=== PATIENT | female | born 1990 ===

== ENCOUNTER 2024-04-14 15:59 | Emergency (ER) | payer OTHER, SELFPAY ==
--- OUTSIDE RECORDS SUMMARY | 2024-04-14 16:03 | XMS REPORT | Continuity of Care Document ---
Author Name Unknown Address [address] [facility] [address] [place] [address] [facility] Address [address] [place] [address] Care Team Providers Care Computer Publisher Name Role Phone Pcp, Patient Does Not Have A Primary Care Physic fela COURTNEY CHUNG Attending Clinician Unavailab le Lab, Lela Attending Clinician Unavailable Courtney Whitlock Attending Clinician + [phone] GEE NOLASCO Attending Clinician Unavailable Gee Nolasco MD Attending Clinician [phone] Joanie Rodriguez Attending Clinician [phone] Doctor Unassigned, [place] Attending Clinician U Laura Martínez MD Attending Clinician [phone] Maykel Ray MD Attending Clinician + JOANIE WALTON Attending Clinician Unavailabl e Risk, Dml-Zpvgp-Ns/High Attending Clinician Unav ailable HERVE HOYT Attending Clinician Unavail able AkinsiHerve Evans Attending Clinician + Marisa Goss RN Attending Clinician Unavailable Ultrasound, Gustavo-Mfleon Attending Clinician UnavailYazan Henry MD Attending Clinician [phone] YAZAN OCAMPO Attending Clinician Unavailable YAZAN OCAMPO Attending Clinician Unavailable MARTITA TRUJILLO Attending Clinician Unavailkwesi Trujillo WHCNP, Martita Mina Attending Clinician [phone] JOSE SAMUELS Attending Clinician UnavailJose Ford MD Attending Clinician + [phone] BRYANT JUSTICE Attending Clinician Unavailkaylin Justice MD, Bryant Askew Attending Clinician [phone] Velasquez Sparks MD Attending Clinician [phone] VELASQUEZ SPARKS Attending Clinician Unavailable VELASQUEZ SPARKS Attending Clinician Unavailable Ruddy NOEL, Jesse Spicer Attending Clinician JESSE CANDELARIO Attending Clinician Jolynn DELIA Cuevas Attending Clinician Unav ailable [facility], [facility] Unavailable Isaiah MSN, Paola Ewing Attending Clinician [phone] 1, [facility] Attending Clinician Unavailab susie Lobato MD, Delia Attending Clinician + Arnulfo Huffman MD Attending Clinician [phone] Faculty, Gustavo leonie Mfm Attending Clinician Unava ilable [facility], [facility]ending Clinician Unava ilable BrysonGayle Kelly Attending Clinician + [phone] Marcy PACDelilah Attending Clinician [phone] Pcp, Patient Does Not Have A Attending Clinician Darío HERNANDEZ, Teressa Zazueta Attending Clinician [phone] Sarah Felix Attending Clinician [phone] BRYANT JUSTICE Admitting Clinician UnavailGEE Romeo Admitting Clinician Unavailable Gee Nolasco MD Admitting Clinician +[phone] Vinh NOEL, Bryant Askew Admitting Clinician [phone] Payers Payer Name Policy Type Policy Number Effective Date Expirati on Date Source [facility] [id number] 2015 00:00:00 [place] [id number] 2020 00:00:00 MEDICAID PENDING PENDING 2020 00:00:00 Problems Condition Name Condition Details Condition Category Status Onset Date Resolution Date Last Treatment Date Treating Clinician Comments Source History of depression History of depression Disease Active 3-22 00:00: 00 [facility] 39 weeks gestation of 39 weeks gestation of Disease Active 2-05 00:00: 00 [facility] High-risk in third trimester High-risk in third trimester Disease Active 2-03 00:00: 00 [facility] History of COVID-19 History of COVID-19 Disease Active 2-03 00:00: 00 [facility] Abnormal finding in urine Abnormal finding in urine Disease Active 2-03 00:00: 00 [facility] Tubal ligation status Tubal ligation status Disease Active -20 00:00: 00 [facility] COVID-19 affecting in third trimester COVID-19 affecting in third trimester Disease Active 1-17 00:00: 00 [facility] Recurrent urinary tract infection affecting in third trimester Recurrent urinary tract infection affecting in third trimester Disease Active 1-17 00:00: 00 [facility] Pre-existi ng diabetes mellitus during in third trimester Pre-existi ng diabetes mellitus during in third trimester Disease Active 2020-03 00:00: 00 [facility] Recurrent UTI (urinary tract infection) complicati ng , unspecifie d trimester Recurrent UTI (urinary tract infection) complicati ng , unspecifie d trimester Disease Active 2020-0320 00:00: 00 [facility] Anemia of mother in , antepartum Anemia of mother in , antepartum Disease Active 2020-0320 00:00: 00 [facility] High risk , antepartum High risk , antepartum Disease Active 2020-03 00:00: 00 [facility] Pre-existi ng diabetes mellitus affecting in third trimester, antepartum Pre-existi ng diabetes mellitus affecting in third trimester, antepartum Disease Active 2020-03 2-20 00:00: 00 [facility] Anemia of mother in , antepartum Anemia of mother in , antepartum Disease Active 2020-03 2-20 00:00: 00 [facility] Pre-existi ng diabetes mellitus affecting in second trimester, antepartum Pre-existi ng diabetes mellitus affecting in second trimester, antepartum Disease Active 8-25 00:00: 00 [facility] History of gestationa l hypertensi on History of gestationa l hypertensi on Disease Active 8-25 00:00: 00 [facility] UTI in UTI in Disease Active 7- 00:00: 00 Overview: Formattin g of this note might be different from the original. 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 Failed 3hr gtt [facility] Supervisio n of high-risk Supervisio n of high-risk Disease Active 6 00:00: 00 [facility] Depression affecting Depression affecting Disease Active 6-10 00:00: 00 [facility] Multiparit y Multiparit y Disease Active 610 00:00: 00 [facility] Depo-Prove ra contracept annelise status Depo-Prove ra contracept annelise status Disease Active 3-13 00:00: 00 [facility] Maternal tobacco use in third trimester Maternal tobacco use in third trimester Disease Active 05-03 00:00: 00 Overview: Formattin g of this note might be different from the original. 5/6cig/da y [facility] Well woman exam Well woman exam Disease Active 2-19 00:00: 00 [facility] Allergies, Adverse Reactions, Alerts Allergy Name Allergy Type Status Severity Reaction(s) Onset Date Inactive Date Treating Clinician Comments Source Yris eklly Propensi ty to adverse reaction s Active Hives 10-05 00:00: 00 [facility] CLINDENISE ZUNILDA DRUG INGREDI Active Hives 10-05 00:00: 00 [facility] Social History Social Habit Start Date Stop Date Quantity Comments Source History of tobacco use 2011-05-14 00:00:00 Cigarette Smoker [facility] History SDOH Alcohol Frequency [facility] History SDOH Alcohol Std Drinks [facility] History SDOH Alcohol Binge [facility] Sexual orientation [facility] Exposure to SARS-CoV-2 (event) 2021-05-07 00:00:00 2021-06-06 07:59:00 Not sure [facility] History of Social function 2021-06-03 00:00:00 2021-06-03 00:00:00 [facility] Alcohol intake 2021-04-20 00:00:00 2021-04-20 00:00:00 Ex-drinker (finding) [facility] Cigarettes smoked current (pack per day) - Reported 2020-08-22 00:00:00 2020-08-22 00:00:00 [facility] Tobacco use and exposure 2020-08-22 00:00:00 2020-08-22 00:00:00 Smokeless tobacco non-user [facility] Alcohol Comment 2017-09-02 00:00:00 2017-09-02 00:00:00 socially [facility] Tobacco Comment 2016-07-30 00:00:00 2016-07-30 00:00:00 5-6 cigarrete per day [facility] Sex Assigned At 1990 00:00:00 1990 00:00:00 [facility] Smoking Status Start Date Stop Date Source Smokes tobacco daily 2020-08-22 00:00:00 [facility] Medications Ordered Medication Name Filled Medication Name Start Date Stop Date Current Medication? Ordering Clinician Indication Dosage Frequency Signature (SIG) Comments Components Source SERTraline (ZOLOFT) 50 mg tablet 04-21 11:32: 29 Yes 50mg Take 50 mg by mouth daily. [facility] busPIRone 5 mg tablet 04-21 11:32: 29 Yes 5mg Take 5 mg by mouth 2 (two) times daily. [facility] ascorbic acid, vitamin C, 500 mg tablet 2 00:00: 00 06-03 00:00 :00 No [id number] 500mg Take 1 tablet by mouth 3 (three) times daily. [facility] foLIC acid 1 mg tablet 04-21 00:00: 00 06-03 00:00 :00 No [id number] 1mg Take 1 tablet by mouth daily. [facility] ferrous sulfate 325 mg (65 mg iron) tablet 04-21 00:00: 00 06-03 00:00 :00 No [id number] 325mg Take 1 tablet by mouth 3 (three) times daily with meals. [facility] vitamin w/FA tablet 04-21 00:00: 00 06-03 00:00 :00 No [id number] 1{tbl} Take 1 tablet by mouth daily. [facility] docusate calcium 240 mg capsule 04-21 00:00: 00 06-03 00:00 :00 No [id number] 240mg Take 1 capsule by mouth once daily as needed for Constipati on. [facility] ibuprofen 600 mg tablet 04-21 00:00: 00 06-03 00:00 :00 No [id number] 600mg Take 1 tablet by mouth every 6 (six) hours as needed (Pain). Take with food or milk. [facility] blood sugar diagnostic (TRUE METRIX GLUCOSE TEST STRIP) strip 08-29 00:00: 00 06-03 00:00 :00 No [id number] Check blood glucose 4x dialy [facility] Blood-Gluco se Meter (TRUE METRIX AIR GLUCOSE METER) Kit 08-29 00:00: 00 06-03 00:00 :00 No [id number] Check glucose 4x daily [facility] lancets 28 gauge Misc 08-29 00:00: 00 06-03 00:00 :00 No [id number] Check blood glucose 4x daily [facility] Immunizations Ordered Immunization Name Filled Immunization Name Date Status Comments Source TDAP 2021-02-13 00:00:00 Completed [facility] TDAP 2021-02-13 00:00:00 Completed [facility] HPV9 2017-09-02 00:00:00 Completed [facility] HPV9 2017-09-02 00:00:00 Completed [facility] HPV 2015-07-08 00:00:00 Completed [facility] HPV 2015-07-08 00:00:00 Completed [facility] HPV 2015-05-01 00:00:00 Completed [facility] HPV 2015-05-01 00:00:00 Completed [facility] TDAP 2015-01-17 00:00:00 Completed [facility] TDAP 2015-01-17 00:00:00 Completed [facility] TDAP Unknown Completed [facility] HPV Unknown Completed [facility] HPV9 Unknown Completed [facility] Vital Signs Vital Name Observation Time Observation Value Comments S ource Systolic blood pressure 2021-06-03 14:46:00 117 mm[Hg] [facility] Diastolic blood pressure 2021-06-03 14:46:00 80 mm[Hg] [facility] Heart rate 2021-06-03 14:46:00 85 /min [facility] Body temperature 2021-06-03 14:46:00 36.56 Flaca [facility] Respiratory rate 2021-06-03 14:46:00 16 /min [facility] Body height 2021-06-03 14:46:00 154.9 cm [facility] Body weight 2021-06-03 14:46:00 48.988 kg [facility] BMI 2021-06-03 14:46:00 20.41 kg/m2 [facility] Encounters Start Date/Time End Date/Time Encounter Type Admission Type Attending [facility] Care Facility Care Department Encounter ID Source 2021-03-07 01:26:59 Outpatient P IDMB RAI [id number] [facility] 2021-01-13 01:28:31 Emergency [facility] [id number] [facility] 2021-01-10 08:46:25 Emergency [facility] [id number] [facility] 2021-01-09 17:43:35 Emergency [facility] [id number] [facility] 2021-07-21 08:30:00 2021-07-21 08:30:00 Outpatient R [facility] [id number] [facility] 2021-07-21 08:30:00 2021-07-21 08:30:00 Outpatient R COURTNEY CHUNG [facility] [id number] [facility] 2021-06-06 07:45:00 2021-06-06 08:15:37 Manager Employee Benefits Visit Lab, [facility] Courtney Chung [facility] [employer] [facility]NAL & CHILD [facility] 1..840.114 350.1.13.10 4.2.7.2.686 [id number] [facility] 2021-06-06 07:45:00 2021-06-06 07:45:00 Outpatient R [facility] [id number] [facility] 2021-06-06 07:45:00 2021-06-06 07:45:00 Outpatient R COURTNEY CHUNG [facility] [id number] [facility] 2021-06-03 09:30:00 2021-06-03 10:19:36 Outpatient R COURTNEY CHUNG [facility] [id number] [facility] 2021-06-03 09:30:00 2021-06-03 10:19:36 Office Visit Courtney Chung [facility] [employer] [facility] CHILD [facility] ..840.114 350.1.13.10 4.2.7.2.686 [id number] [facility] 2021-06-03 09:30:00 2021-06-03 09:30:00 Outpatient SHANTI CURIELÁNGELKaylin [facility] [id number] [facility] 2021-05-09 09:15:00 2021-05-09 10:25:14 Outpatient SHANTI CURIELKONSTANTIN [facility] [id number] [facility] 2021-05-09 09:15:00 2021-05-09 10:25:14 Routine Visit Shanti Chungkonstantin Ang [facility] [employer] [facility] & CHILD [facility] 1..114 350.1.13.10 4.2.7.2.686 [id number] [facility] 2021-05-09 09:15:00 2021-05-09 10:25:14 Outpatient MARI CURIELOBEDKaylin [facility] [id number] [facility] 2021-04-19 06:42:00 2021-04-21 11:32:00 Inpatient P [facility] GEE [facility] RAI [id number] [facility] 2021-04-19 06:42:00 2021-04-21 11:32:00 Hospital Encounter Mercy Gee F [facility] 1..114 350.1.13.10 4.2.7.2.686 [id number] [facility] 2021-04-21 00:00:00 2021-04-21 00:00:00 Telephone Joanie Walton [facility] [employer] [facility] 1..114 350.1.13.10 4.2.7.2.686 [id number] [facility] 2021-04-21 00:00:00 2021-04-21 00:00:00 Patient Secure Msg Doctor Unassigned, [place] [facility] 1.0.114 350.1.13.10 4.2.7.2.686 [id number] [facility] 2021-04-19 12:00:00 2021-04-20 02:02:00 Anesthesia Event Elier Laura Valiente-Jered laughlin, Maykel [facility] 1.840.114 350.1.13.10 4.2.7.2.686 [id number] [facility] 2021-04-19 06:42:00 2021-04-19 06:42:00 Inpatient P GEE NOLASCO [facility] RAI [id number] [facility] 2021-04-17 12:45:00 2021-04-17 13:29:55 Outpatient R JOANIE WALTON [facility] [id number] [facility] 2021-04-17 12:45:00 2021-04-17 13:29:55 Routine Visit Risk, Ang-Rmchp-N p/High Joanie Walton [facility] [employer] [facility] & CHILD [facility] 1..840.114 350.1.13.10 4.2.7.2.686 [id number] [facility] 2021-04-17 12:30:00 2021-04-17 12:30:00 Outpatient R [facility] [id number] [facility] 2021-04-15 12:45:00 2021-04-15 13:30:15 Outpatient R HERVE HOYT [facility] [id number] [facility] 2021-04-15 12:45:00 2021-04-15 13:30:15 Routine Visit Herve Hoyt [facility] [employer] [facility] & CHILD [facility] 1..840.114 350.1.13.10 4.2.7.2.686 [id number] [facility] 2021-04-15 12:30:00 2021-04-15 12:30:00 Outpatient R [facility] [id number] [facility] 2021-04-15 00:00:00 2021-04-15 00:00:00 Orders Only Doctor Unassigned, [place] [facility] 1.840.114 350.1.13.10 4.2.7.2.686 [id number] [facility] 2021-04-11 00:00:00 2021-04-11 00:00:00 Telephone Herve Hoyt [facility] [employer] [facility] & CHILD [facility] 1.840.114 350.1.13.10 4.2.7.2.686 [id number] [facility] 2021-04-11 00:00:00 2021-04-11 00:00:00 Nurse Triage Marisa Goss [facility] 1.840.114 350.1.13.10 4.2.7.2.686 [id number] [facility] 2021-04-10 12:45:00 2021-04-10 13:40:21 Outpatient R JOANIE WALTON [facility] [id number] [facility] 2021-04-10 12:45:00 2021-04-10 13:40:21 Routine Visit Risk, Ang-Rmchp-N p/High Jonaie Walton [facility] [employer] [facility] & CHILD [facility] 1.840.114 350.1.13.10 4.2.7.2.686 [id number] [facility] 2021-04-10 12:30:00 2021-04-10 12:30:00 Outpatient R [facility] [id number] [facility] 2021-04-08 00:00:00 2021-04-08 00:00:00 Abstract Herve Hoyt [facility] [employer] [facility] 1.0.114 350.1.13.10 4.2.7.2.686 [id number] [facility] 2021-04-07 15:00:00 2021-04-07 15:30:00 Manager Employee Benefits Visit Ultrasound, Yazan Harrison [facility] [employer] [facility] & CHILD [facility] 1.840.114 350.1.13.10 4.2.7.2.686 [id number] [facility] 2021-04-07 15:00:00 2021-04-07 15:01:06 Outpatient P YAZAN OCAMPO SHANNON [facility] [id number] [facility] 2021-04-07 15:00:00 2021-04-07 15:00:00 Outpatient P YAZAN OCAMPO SHANNON [facility] [id number] [facility] 2021-04-07 14:00:00 2021-04-07 14:29:59 Routine Visit Herve Hoyt [facility] & CHILD [facility] 1.840.114 350.1.13.10 4.2.7.2.686 [id number] [facility] 2021-04-07 00:00:00 2021-04-07 00:00:00 Orders Only Doctor Unassigned, [place] [facility] 1.840.114 350.1.13.10 4.2.7.2.686 [id number] [facility] 2021-04-03 13:15:00 2021-04-03 13:20:52 Outpatient R MARTITA TRUJILLO [facility] [id number] [facility] 2021-04-03 13:15:00 2021-04-03 13:20:52 Routine Visit Risk, Ang-Rmchp-N p/High Martita Trujillo [facility] [employer] [facility] & CHILD [facility] 1..840.114 350.1.13.10 4.2.7.2.686 [id number] [facility] 2021-04-01 10:15:00 2021-04-01 10:43:29 Outpatient R HERVE HOYT [facility] [id number] [facility] 2021-04-01 10:15:00 2021-04-01 10:43:29 Routine Visit Herve Hoyt Rodriguez [facility] [employer] [facility] & CHILD [facility] 1.284.114 350.1.13.10 4.2.7.2.686 [id number] [facility] 2021-04-01 00:00:00 2021-04-01 00:00:00 Orders Only Doctor Unassigned, [place] [facility] 1.2.114 350.1.13.10 4.2.7.2.686 [id number] [facility] 2021-03-27 12:45:00 2021-03-27 15:29:27 Outpatient R JOANIE WALTON [facility] [id number] [facility] 2021-03-27 12:45:00 2021-03-27 15:29:27 Routine Visit Risk, Ang-Rmchp-N p/High Joanie Walton [facility] [employer] [facility] & CHILD [facility] 1.840.114 350.1.13.10 4.2.7.2.686 [id number] [facility] 2021-03-25 13:45:00 2021-03-25 15:09:34 Outpatient R COURTNEY CHUNG [facility] [id number] [facility] 2021-03-25 13:45:00 2021-03-25 15:09:34 Routine Visit Courtney Chung [facility] [employer] [facility] & CHILD [facility] 1..114 350.1.13.10 4.2.7.2.686 [id number] [facility] 2021-03-25 00:00:00 2021-03-25 00:00:00 Orders Only Doctor Unassigned, [place] [facility] 1.2.840.114 350.1.13.10 4.2.7.2.686 [id number] [facility] 2021-03-20 15:30:00 2021-03-20 15:30:00 Outpatient R COURTNEY CHUNG [facility] [id number] [facility] 2021-03-20 14:45:00 2021-03-20 14:45:00 Outpatient R [facility] [id number] [facility] 2021-03-20 00:00:00 2021-03-20 00:00:00 Telephone Herve Hoyt [facility] [employer] [facility] & CHILD [facility] .840.114 350.1.13.10 4.2.7.2.686 [id number] [facility] 2021-03-17 08:00:00 2021-03-17 08:55:39 Outpatient R HERVE HOYT [facility] [id number] [facility] 2021-03-17 08:00:00 2021-03-17 08:55:39 Routine Visit Herve Hoyt [facility] [facility] .840.114 350.1.13.10 4.2.7.2.686 [id number] [facility] 2021-03-13 15:30:00 2021-03-13 15:56:15 Outpatient R HERVE HOYT [facility] [id number] [facility] 2021-03-13 15:30:00 2021-03-13 15:56:15 Routine Visit Herve Hoyt [facility] [facility] .840.114 350.1.13.10 4.2.7.2.686 [id number] [facility] 2021-03-13 15:00:00 2021-03-13 15:00:00 Outpatient R [facility] [id number] [facility] 2021-03-13 00:00:00 2021-03-13 00:00:00 Orders Only Doctor Unassigned, [place] [facility] 1..840.114 350.1.13.10 4.2.7.2.686 [id number] [facility] 2021-03-11 00:00:00 2021-03-11 00:00:00 Abstract Herve Hoyt [facility] [employer] [facility] & CHILD [facility] 1..840.114 350.1.13.10 4.2.7.2.686 [id number] [facility] 2021-03-10 16:00:00 2021-03-10 16:19:00 Routine Visit Herve Hoyt [facility] [employer] [facility] & CHILD [facility] 1..840.114 350.1.13.10 4.2.7.2.686 [id number] [facility] 2021-03-10 15:00:00 2021-03-10 15:37:51 Outpatient JOSE LAW [facility] [id number] [facility] 2021-03-10 15:30:00 2021-03-10 15:30:00 Outpatient YAZAN PAIGE SHANNON [facility] [id number] [facility] 2021-03-10 15:00:00 2021-03-10 15:30:00 Manager Employee Benefits Visit Ultrasound, Yazan Harrison Hassan M [facility] [employer] [facility] & CHILD [facility] 1..840.114 350.1.13.10 4.2.7.2.686 [id number] [facility] 2021-03-06 19:09:00 2021-03-07 01:26:00 Outpatient P [facility] [id number] [facility] 2021-03-06 19:09:00 2021-03-07 01:26:00 Hospital Encounter Bryant Justice [facility] 1.840.114 350.1.13.10 4.2.7.2.686 [id number] [facility] 2021-03-06 16:00:00 2021-03-06 16:18:32 Outpatient R HERVE HOYT [facility] [id number] [facility] 2021-03-06 16:00:00 2021-03-06 16:18:32 Routine Visit Herve Hoyt [facility] [employer] [facility] & CHILD [facility] 1..840.114 350.1.13.10 4.2.7.2.686 [id number] [facility] 2021-03-06 15:30:00 2021-03-06 15:30:00 Outpatient R [facility] [id number] [facility] 2021-03-06 00:00:00 2021-03-06 00:00:00 Orders Only Doctor Unassigned, [place] [facility] 1.2840.114 350.1.13.10 4.2.7.2.686 [id number] [facility] 2021-03-03 15:30:00 2021-03-03 15:45:00 Routine Visit Herve Hoyt [facility] [employer] [facility] 1..840.114 350.1.13.10 4.2.7.2.686 [id number] [facility] 2021-03-03 15:30:00 2021-03-03 15:30:00 Outpatient R HERVE HOYT [facility] [id number] [facility] 2021-03-03 00:00:00 2021-03-03 00:00:00 Orders Only Doctor Unassigned, [place] [facility] 1.114 350.1.13.10 4.2.7.2.686 [id number] [facility] 2021-02-27 14:30:00 2021-02-27 15:59:36 Outpatient R JOANIE WALTON [facility] [id number] [facility] 2021-02-27 14:30:00 2021-02-27 15:59:36 Routine Visit Risk, YoandyRmchp-N p/[facility] [employer] [facility] 1..114 350.1.13.10 4.2.7.2.686 [id number] [facility] 2021-02-24 00:00:00 2021-02-24 00:00:00 Salvador Walton [facility] [employer] [facility] 1.114 350.1.13.10 4.2.7.2.686 [id number] [facility] 2021-02-13 14:30:00 2021-02-13 15:43:59 Outpatient R JOANIE WALTON [facility] [id number] [facility] 2021-02-13 14:30:00 2021-02-13 15:43:59 Routine Visit Risk, YoandyRmchp-N p/High Nadine [facility] [employer] [facility] 1..114 350.1.13.10 4.2.7.2.686 [id number] [facility] 2021-02-10 15:16:09 2021-02-10 15:46:09 Manager Employee Benefits Visit Ultrasound, Yazan Harrison, Velasquez [facility] [employer] [facility] 1..114 350.1.13.10 4.2.7.2.686 [id number] [facility] 2021-02-10 15:00:00 2021-02-10 15:00:00 Outpatient P VELASQUEZ SPARKS SANGEETA [facility] [id number] [facility] 2021-01-23 14:30:00 2021-01-23 15:42:33 Outpatient JOANIE DANIELLE [facility] [id number] [facility] 2021-01-23 14:17:10 2021-01-23 15:42:33 Routine Visit Risk, Ang-Rmchp-N p/High Joanie Walton [facility] [employer] [facility] 1.2.840.114 350.1.13.10 4.2.7.2.686 [id number] [facility] 2021-01-13 13:02:24 2021-01-13 13:32:24 Manager Employee Benefits Visit Ultrasound, Yazan Harrison [facility] [employer] [facility] 1..840.114 350.1.13.10 4.2.7.2.686 [id number] [facility] 2021-01-13 13:00:00 2021-01-13 13:00:00 Outpatient YAZAN JIMÉNEZ SHANNON [facility] [id number] [facility] 2021-01-13 13:00:00 2021-01-13 13:00:00 Outpatient R [facility] [id number] [facility] 2021-01-02 14:30:00 2021-01-02 15:26:09 Outpatient JOANIE DANIELLE [facility] [id number] [facility] 2021-01-02 14:17:18 2021-01-02 15:26:09 Routine Visit Risk, Ang-Rmchp-N p/High Joanie Walton [facility] [employer] [facility] 1.2.840.114 350.1.13.10 4.2.7.2.686 [id number] [facility] 2021-01-02 00:00:00 2021-01-02 00:00:00 Orders Only Doctor Unassigned, [place] [facility] 1.2.840.114 350.1.13.10 4.2.7.2.686 [id number] [facility] 2020-12-13 00:00:00 2020-12-13 00:00:00 Telephone Joanie Walton Denton [facility] [employer] [facility] 1.2.840.114 350.1.13.10 4.2.7.2.686 [id number] [facility] 2020-12-12 00:00:00 2020-12-12 00:00:00 Telephone Jimy DelgadoN p/ [facility] [employer] [facility] 1.2.840.114 350.1.13.10 4.2.7.2.686 [id number] [facility] 2020-12-11 00:00:00 2020-12-11 00:00:00 Telephone Joanie Walton [place] [facility] [employer] [facility] 1.2.840.114 350.1.13.10 4.2.7.2.686 [id number] [facility] 2020-12-09 10:29:12 2020-12-09 11:44:12 Manager Employee Benefits Visit Ultrasound, Bryant Jacinto [facility] [employer] [facility] 1.2.840.114 350.1.13.10 4.2.7.2.686 [id number] [facility] 2020-12-09 10:45:00 2020-12-09 10:45:00 Outpatient P [facility] [id number] [facility] 2020-12-09 00:00:00 2020-12-09 00:00:00 Abstract Herve Hoyt Rodriguez [facility] [employer] [facility] 1.2.840.114 350.1.13.10 4.2.7.2.686 [id number] [facility] 2020-12-05 13:45:26 2020-12-05 14:56:51 Routine Visit Risk, Ang-Rmchp-N p/High Joanie Walton [facility] [employer] [facility] 1..840.114 350.1.13.10 4.2.7.2.686 [id number] [facility] 2020-12-05 14:00:00 2020-12-05 14:00:00 Outpatient R [facility] [id number] [facility] 2020-11-21 14:40:58 2020-11-21 15:33:06 Routine Visit Risk, Ang-Rmchp-N p/High Joanie Walton [facility] [employer] [facility] 1..840.114 350.1.13.10 4.2.7.2.686 [id number] [facility] 2020-11-21 15:00:00 2020-11-21 15:00:00 Outpatient R [facility] [id number] [facility] 2020-11-06 14:17:00 2020-11-06 15:33:18 Routine Visit Risk, Ang-Rmchp-N p/High Joanie Walton [facility] [employer] [facility] 1..840.114 350.1.13.10 4.2.7.2.686 [id number] [facility] 2020-11-06 14:30:00 2020-11-06 14:30:00 Outpatient R [facility] [id number] [facility] 2020-11-06 00:00:00 2020-11-06 00:00:00 Orders Only Doctor Unassigned, [place] [facility] 1..114 350.1.13.10 4.2.7.2.686 [id number] [facility] 2020-11-04 09:05:59 2020-11-04 10:18:27 Office [facility] 1..114 350.1.13.10 4.2.7.2.686 [id number] [facility] 2020-11-04 09:30:00 2020-11-04 09:30:00 Outpatient R JESSE CANDELARIO [facility] [id number] [facility] 2020-10-28 09:00:00 2020-10-28 09:00:00 Outpatient R DELIA SMITH [facility] [id number] [facility] 2020-10-28 00:00:00 2020-10-28 00:00:00 Telephone Herve Hoyt [facility] [employer] [facility] 1..840.114 350.1.13.10 4.2.7.2.686 [id number] [facility] 2020-10-22 14:43:49 2020-10-22 15:33:11 Routine Visit Herve Hoyt [facility] [employer] [facility] 1.84.114 350.1.13.10 4.2.7.2.686 [id number] [facility] 2020-10-22 15:00:00 2020-10-22 15:00:00 Outpatient R HERVE HOYT [facility] [id number] [facility] 2020-10-22 15:00:00 2020-10-22 15:00:00 Outpatient R HERVE HOYT [facility] [id number] [facility] 2020-10-16 00:00:00 2020-10-16 00:00:00 Abstract Herve Hoyt [facility] [employer] [facility] 1.2.840.114 350.1.13.10 4.2.7.2.686 [id number] [facility] 2020-10-14 10:02:04 2020-10-14 10:59:14 Manager Employee Benefits Visit Lab[facility] Paola Colon [facility] [employer] [facility]ILD [facility] 1.2.840.114 350.1.13.10 4.2.7.2.686 [id number] [facility] 2020-10-14 10:01:46 2020-10-14 10:46:46 Manager Employee Benefits Visit 1[facility] Delia Smith George R [facility] [employer] [facility] 1..840.114 350.1.13.10 4.2.7.2.686 [id number] [facility] 2020-10-14 10:00:00 2020-10-14 10:00:00 Outpatient P DELIA SMTIH [facility] [id number] [facility] 2020-10-10 00:00:00 2020-10-10 00:00:00 Telephone Herve Hoyt [facility] [employer] [facility] 1..840.114 350.1.13.10 4.2.7.2.686 [id number] [facility] 2020-10-07 15:15:00 2020-10-07 15:15:00 Outpatient R HERVE HOYT [facility] [id number] [facility] 2020-10-07 14:40:32 2020-10-07 15:07:21 Routine Visit Herve Hoyt [facility] [employer] [facility] 1.2.840.114 350.1.13.10 4.2.7.2.686 [id number] [facility] 2020-10-07 11:00:00 2020-10-07 11:00:00 Outpatient P [facility] [id number] [facility] 2020-10-07 00:00:00 2020-10-07 00:00:00 Orders Only Doctor Unassigned, [place] [facility] 1.2.114 350.1.13.10 4.2.7.2.686 [id number] [facility] 2020-09-27 00:00:00 2020-09-27 00:00:00 Telephone Herve Hoyt [facility] [employer] [facility] 1.2840.114 350.1.13.10 4.2.7.2.686 [id number] [facility] 2020-09-23 14:45:30 2020-09-23 15:34:41 Routine Visit Herve Hoyt [facility] [employer] [facility] 1.2840.114 350.1.13.10 4.2.7.2.686 [id number] [facility] 2020-09-23 15:00:00 2020-09-23 15:00:00 Outpatient R HERVE HOYT [facility] [id number] [facility] 2020-09-23 00:00:00 2020-09-23 00:00:00 Orders Only Doctor Unassigned, [place] [facility] 1.2840.114 350.1.13.10 4.2.7.2.686 [id number] [facility] 2020-09-17 00:00:00 2020-09-17 00:00:00 Abstract Herve Hoyt Rodriguez [facility] [employer] [facility] 1..840.114 350.1.13.10 4.2.7.2.686 [id number] [facility] 2020-09-16 15:06:26 2020-09-16 15:36:26 Manager Employee Benefits Visit Ultrasound, Arnulfo Leon [facility] [employer] [facility] 1.840.114 350.1.13.10 4.2.7.2.686 [id number] [facility] 2020-09-16 15:15:00 2020-09-16 15:15:00 Outpatient P [facility] [id number] [facility] 2020-09-12 09:00:00 2020-09-12 09:00:00 Outpatient R [facility] [id number] [facility] 2020-09-09 09:04:51 2020-09-09 10:20:12 Routine Visit Faculty, Velasquez Salguero [facility] [employer] [facility] 1..840.114 350.1.13.10 4.2.7.2.686 [id number] [facility] 2020-09-09 09:30:00 2020-09-09 09:30:00 Outpatient R VELASQUEZ SPARKS SANGEETA [facility] [id number] [facility] 2020-09-09 00:00:00 2020-09-09 00:00:00 Orders Only Doctor Unassigned, [place] [facility] 1.840.114 350.1.13.10 4.2.7.2.686 [id number] [facility] 2020-09-02 09:40:36 2020-09-02 10:23:15 Nurse Visit Visit, Gerardochp Nurse Bryant Justice [facility] [employer] [facility] 1.2840.114 350.1.13.10 4.2.7.2.686 [id number] [facility] 2020-09-02 10:00:00 2020-09-02 10:00:00 Outpatient BRYANT NAIR [facility] [id number] [facility] 2020-08-29 00:00:00 2020-08-29 00:00:00 Telephone Herve Hoyt [facility] [employer] [facility] 1.2840.114 350.1.13.10 4.2.7.2.686 [id number] [facility] 2020-08-29 00:00:00 2020-08-29 00:00:00 Telephone Herve Hoyt [facility] [employer] [facility] CHILD [facility] 1.2840.114 350.1.13.10 4.2.7.2.686 [id number] [facility] 2020-08-29 00:00:00 2020-08-29 00:00:00 Velasquez Daley [facility] [employer] [facility] 1.2840.114 350.1.13.10 4.2.7.2.686 [id number] [facility] 2020-08-28 07:51:41 2020-08-28 08:14:09 Manager Employee Benefits Visit Lab, Gustavo-RmchHerve Barger [facility] [employer] [facility] 1.2840.114 350.1.13.10 4.2.7.2.686 [id number] [facility] 2020-08-28 08:00:00 2020-08-28 08:00:00 Outpatient HERVE GOLDENMB [facility] [id number] [facility] 2020-08-27 19:20:00 2020-08-27 21:22:00 Emergency Gayle Bryson [facility] 1.2.840.114 350.1.13.10 4.2.7.2.686 [id number] [facility] 2020-08-26 00:00:00 2020-08-26 00:00:00 Telephone Yoandy DelgadoRmchp-N p/High [facility] [employer] [facility] 1.2.840.114 350.1.13.10 4.2.7.2.686 [id number] [facility] 2020-08-26 00:00:00 2020-08-26 00:00:00 Telephone Herve Hoyt [facility] [employer] [facility] 1.2.840.114 350.1.13.10 4.2.7.2.686 [id number] [facility] 2020-08-23 00:00:00 2020-08-23 00:00:00 Telephone Herve Hoyt [facility] [employer] [facility] 1.2.840.114 350.1.13.10 4.2.7.2.686 [id number] [facility] 2020-08-22 08:31:27 2020-08-22 09:46:24 Initial Visit Herve Hoyt [facility] [employer] [facility] 1.2.840.114 350.1.13.10 4.2.7.2.686 [id number] [facility] 2020-08-22 08:00:00 2020-08-22 08:00:00 Outpatient R HERVE HOYT [facility] [id number] [facility] 2020-08-22 00:00:00 2020-08-22 00:00:00 Orders Only Doctor Unassigned, [place] [facility] 1.2.840.114 350.1.13.10 4.2.7.2.686 [id number] [facility] 2019-10-06 17:58:02 2019-10-06 19:25:00 Emergency Marcy Delilah Mike [facility] 1.2.840.114 350.1.13.10 4.2.7.2.686 [id number] [facility] 2019-07-12 00:00:00 2019-07-12 00:00:00 Telephone Pcp, Patient Does Not Have A [facility] [employer] [facility] 1.2.840.114 350.1.13.10 4.2.7.2.686 [id number] [facility] 2019-06-23 17:24:17 2019-06-23 18:48:00 Emergency Teressa Chanel [facility] 1.2.840.114 350.1.13.10 4.2.7.2.686 [id number] [facility] 2019-05-02 18:05:32 2019-05-02 18:34:00 Emergency Sarah Palacio [facility] 1.2.840.114 350.1.13.10 4.2.7.2.686 [id number] [facility]
--- NOTE | 2024-04-14 16:51 | EDPHYS ---
Physician Documentation [facility] Name: Ellen Cowan Age: 33 yrs Sex: Female : 1990 Arrival Date: 04/14/2024 Time: 15:59 Bed DX2 Private MD: ED Physician Kristan Barrett HPI: 04/14 16:46 This 33 yrs old Unknown Female presents to ER via EMS with complaints of Depression. sp3 16:46 33-year-old female with history of depression currently on BuSpar and Zoloft, who has sp3 been out of her meds, presents to the ED via EMS for depression symptoms. She states she just wants to get back on her medications. She denies suicidal ideation, homicidal ideation, psychosis or any somatic symptoms including headache, chest pain, back pain, abdominal pain, vomiting, diarrhea, , drug use, or any other signs or symptoms on ROS at this time. She did endorse alcohol use including some today.. Historical: - Allergies: 16:18 No Known Allergies; hb - PMHx: 16:18 depressive disorder; hb - PSHx: 16:18 Cholecystectomy; hb - Immunization history:: Adult Immunizations up to date. - Infectious Disease History:: Denies. - Social history:: Smoking status: Patient denies any tobacco usage or history of. ROS: 16:47 Constitutional: Negative for fever, chills, and weight loss, Eyes: Negative for injury, sp3 pain, redness, and discharge, ENT: Negative for injury, pain, and discharge, Neck: Negative for injury, pain, and swelling, Cardiovascular: Negative for chest pain, palpitations, and edema, Respiratory: Negative for shortness of breath, cough, wheezing, and pleuritic chest pain, Abdomen/GI: Negative for abdominal pain, nausea, vomiting, diarrhea, and constipation, Back: Negative for injury and pain, MS/Extremity: Negative for injury and deformity, Skin: Negative for injury, rash, and discoloration, Neuro: Negative for headache, weakness, numbness, tingling, and seizure, Allergy/Immunology: Negative for hives, rash, and allergies, Endocrine: Negative for neck swelling, polydipsia, polyuria, polyphagia, and marked weight changes, Hematologic/Lymphatic: Negative for swollen nodes, abnormal bleeding, and unusual bruising, 16:47 All other systems are negative, Exam: 16:47 Constitutional: This is a well developed, well nourished patient who is awake, alert, sp3 and in no acute distress. Head/Face: Normocephalic, atraumatic. Eyes: Pupils equal round and reactive to light, extra-ocular motions intact. Lids and lashes normal. Conjunctiva and sclera are non-icteric and not injected. Cornea within normal limits. Periorbital areas with no swelling, redness, or edema. Neck: Trachea midline, no thyromegaly or masses palpated, and no cervical lymphadenopathy. Supple, full range of motion without nuchal rigidity, or vertebral point tenderness. No Meningismus. Chest/axilla: Normal chest wall appearance and motion. Nontender with no deformity. No lesions are appreciated. Cardiovascular: Regular rate and rhythm with a normal S1 and S2. No gallops, murmurs, or rubs. Normal PMI, no JVD. No pulse deficits. Respiratory: Lungs have equal breath sounds bilaterally, clear to auscultation and percussion. No rales, rhonchi or wheezes noted. No increased work of breathing, no retractions or nasal flaring. Abdomen/GI: Soft, non-tender, with normal bowel sounds. No distension or tympany. No guarding or rebound. No evidence of tenderness throughout. Back: No spinal tenderness. No costovertebral tenderness. Full range of motion. Skin: Warm, dry with normal turgor. Normal color with no rashes, no lesions, and no evidence of cellulitis. MS/ Extremity: Pulses equal, no cyanosis. Neurovascular intact. Full, normal range of motion. 16:47 Neuro: Normal neurological exam with no deficits. Patient is intoxicated mildly., 16:47 Psych: Patient is depressive with no SI, HI or psychosis. When asked about reasons to live, she states her children and her desire to see them grow up. She has never had suicidal ideation in the past. Some of her stress stems from the father of one of her children. She states she is working through it. She does not fear for her life, is not being sexually or physically abused, and she states the same for her children. She does have a safe place to live.. Vital Signs: 16:17 BP 117 / 68; Pulse 88; Resp 16; Temp 98.5(O); Pulse Ox 100% on R/A; Weight 45.36 kg; hb Height 4 ft. 11 in. ; Pain 0/10; 16:17 Body Mass Index 20.20 (45.36 kg, 149.86 cm) hb 16:17 Pain Scale: Adult hb MDM: 16:13 Medical Screening Exam initiated sp3 16:49 Data reviewed: vital signs, nurses notes. ED course: 33-year-old female with depression sp3 versus depression plus potential bipolar symptoms versus alcohol induced depression. Regardless patient is out of her medications and we will refill them. Patient does not meet criteria for inpatient hospitalization. I do not believe there is a somatic component to this. Patient reassures us that she will return here for any worsening symptoms or concerns. She does have a ride home with a friend in the lobby and she will not be operating any heavy machinery or driving at this time.. Administered Medications: No medications were administered Disposition Summary: 04/14/24 16:50 Discharge Ordered Notes: Location: Home sp3 Condition: Stable sp3 Diagnosis - Depression sp3 Followup: sp3 - With: Private Physician - When: Upon discharge from the Emergency Department - Reason: Continuance of care Discharge Instructions: - Discharge Summary Sheet sp3 - Managing Depression, Adult sp3 Forms: - Medication Reconciliation Form sp3 - Antibiotic Education sp3 - Prescription Opioid Use sp3 - Patient Portal Instructions sp3 - Leadership Thank You Letter sp3 Prescriptions: - buspirone 15 mg Oral tablet - take 1 tablet ORAL route 2 times per day; 60 tablet; Refills: 0, Product sp3 Selection Permitted - Zoloft 50 mg Oral Tablet - take 1 tablet ORAL route once daily; 30 tablet; Refills: 0, Product Selection sp3 Permitted Signatures: Ilene Gant, RN RN Kristan Barrett MD MD sp3
--- NOTE | 2024-04-14 16:51 | ER ---
Nurse's Notes [facility] Name: Ellen Cowan Age: 33 yrs Sex: Female : 1990 Arrival Date: 04/14/2024 Time: 15:59 Bed DX2 Private MD: Diagnosis: Depression Presentation: 04/14 16:17 Chief complaint: EMS states: Depressed, feels sad and does not have anyone to help. hb Denies SI/HI. Coronavirus screen: At this time, the client does not indicate any symptoms associated with coronavirus-19. Ebola Screen: No symptoms or risks identified at this time. Initial Sepsis Screen: Does the patient meet any 2 criteria? No. Patient's initial sepsis screen is negative. Does the patient have a suspected source of infection? No. Patient's initial sepsis screen is negative. Risk Assessment: Do you want to hurt yourself or someone else? Patient reports no desire to harm self or others. Onset of symptoms was April 14, 2024. 16:17 Method Of Arrival: EMS: [facility] hb 16:17 Acuity: RUDY 3 hb Historical: - Allergies: 16:18 No Known Allergies; hb - PMHx: 16:18 depressive disorder; hb - PSHx: 16:18 Cholecystectomy; hb - Immunization history:: Adult Immunizations up to date. - Infectious Disease History:: Denies. - Social history:: Smoking status: Patient denies any tobacco usage or history of. Screenin:45 [facility] ED Fall Risk Assessment (Adult) History of falling in the last 3 months, hb including since admission No falls in past 3 months (0 pts) Confusion or Disorientation No (0 pts) Intoxicated or Sedated No (0 pts) Impaired Gait No (0 pts) Mobility Assist Device Used No (0 pt) Altered Elimination No (0 pt) Score/Fall Risk Level 0 - 2 = Low Risk Oriented to surroundings, Maintained a safe environment, Educated pt \T\ family on fall prevention, incl call for assistance when getting out of bed. 16:45 Abuse screen: Denies threats or abuse. Denies injuries from another. Nutritional hb screening: No deficits noted. Tuberculosis screening: No symptoms or risk factors identified. Assessment: 16:20 General: Appears in no apparent distress. Behavior is calm, cooperative. Pain: Denies hb pain. Neuro: Level of Consciousness is awake, alert, obeys commands, Oriented to person, place, time, situation. Cardiovascular: Patient's skin is warm and dry. Respiratory: Respiratory effort is even, unlabored. GI: No signs and/or symptoms were reported involving the gastrointestinal system. : No signs and/or symptoms were reported regarding the genitourinary system. EENT: No signs and/or symptoms were reported regarding the EENT system. Derm: Skin is pink, warm \T\ dry. Musculoskeletal: No signs and/or symptoms reported regarding the musculoskeletal system. Vital Signs: 16:17 BP 117 / 68; Pulse 88; Resp 16; Temp 98.5(O); Pulse Ox 100% on R/A; Weight 45.36 kg; hb Height 4 ft. 11 in. ; Pain 0/10; 16:17 Body Mass Index 20.20 (45.36 kg, 149.86 cm) hb 16:17 Pain Scale: Adult hb ED Course: 16:11 Patient arrived in ED. harpal 16:11 Kristan Barrett MD is Attending Physician. sp3 16:18 Triage completed. hb 16:18 Arm band placed on. hb 17:12 Patient has correct armband on for positive identification. Provided Education on: hb medications, follow up. 17:12 No provider procedures requiring assistance completed. Patient did not have IV access hb during this emergency room visit. 17:18 Ilene Gant, RN is Primary Nurse. hb Administered Medications: No medications were administered Medication: 17:00 VIS not applicable for this client. hb Outcome: 16:50 Discharge ordered by . sp3 17:12 Discharged to home ambulatory, hb 17:12 Condition: stable 17:12 Discharge instructions given to patient, Instructed on discharge instructions, follow up and referral plans. medication usage, Demonstrated understanding of instructions, follow-up care, medications, Prescriptions given X 2, 17:18 Patient left the ED. hb Signatures: Ilene Gant RN RN hb Botello, Elizabeth eb Patel, Setul, MD MD sp3
[2024-04-14 18:06] VITALS: BP 117/68; TEMP 98.5; O2SAT 100
== END 2024-04-14 17:18 | disposition home or self-care (01) ==
LOC: ER 15:59
DX: F32.A Depression, unspecified (principal)
CPT/HCPCS: 99283

== ENCOUNTER 2024-12-16 17:34 | Emergency (ER) | payer SELFPAY ==
--- OUTSIDE RECORDS SUMMARY | 2024-12-16 17:39 | XMS REPORT | Continuity of Care Document ---
Author Name Unknown Address [address] [facility] [address] [place] [address] [facility] Address [address] [facility] [address] [place] [address] Care Team Providers Care Machine Tech Name Role Phone Nya Katz CNM Primary Care Physician Doctor Unassigned, Edna Attending Clinician U Karon Celaya MA Attending Clinician U COURTNEY Diop Attending Clinician Unavailab le Lela Tirado Attending Clinician Unavailable Courtney Whitlock Attending Clinician + [phone] GEE NOLASCO Attending Clinician Unavailable Gee Nolasco MD Attending Clinician [phone] Joanie Rodriguez Attending Clinician [phone] Doctor Unassigned, Edna Attending Clinician U Laura Martínez MD Attending Clinician [phone] Cory NOEL, Maykel Attending Clinician + JOANIE WALTON Attending Clinician Unavailabl e Risk, Tpy-Oyoaz-Gz/High Attending Clinician Unav ailable HERVE HOYT Attending Clinician Unavail able Herve Hidalgo Attending Clinician + Marisa Goss RN Attending Clinician Unavailable Ultrasound, YoandyMfm Attending Clinician UnavailYazan Henry MD Attending Clinician + [phone] YAZAN OCAMPO Attending Clinician Unavailable YAZAN OCAMPO Attending Clinician Unavailable MARTITA TRUJILLO Attending Clinician Unavailkwesi Tru[facility]illo [facility] Mina Attending Clinician +[phone] JOSE SAMUELS Attending Clinician UnavailJose Ford MD Attending Clinician + [phone] BRYANT JUSTICE Attending Clinician Unavailangélica Justice MD, Bryant Askew Attending Clinician + Velasquez Sparks MD Attending Clinician +[phone] VELASQUEZ SPARKS Attending Clinician Unavailable VELASQUEZ SPARKS Attending Clinician Unavailable Ruddy NOEL, Jesse Spicer Attending Clinician JESSE CANDELARIO Attending Clinician Jolynn vailable DELIA MARTIN Attending Clinician Unav ailable Lab, [facility] Attending Clinician Unavailable Isaiah MSN, Paola Ewing Attending Clinician [phone], [facility] Room Attending Clinician Unavailab susie Lobato MD, Delia Attending Clinician + Arnulfo Huffman MD Attending Clinician + [phone] Faculty, [facility] Attending Clinician Unava ilable Visit, [facility] Nurse Attending Clinician Unava ilable Gayle Hill Attending Clinician [phone] Marcy PACDelilah Attending Clinician + [phone] Pcp, Patient Does Not Have A Attending Clinician Darío HERNANDEZ, Teressa Zazueta Attending Clinician + [phone] Hakeem PACSarah Attending Clinician [phone] BRYANT JUSTICE Admitting Clinician UnavailGEE Romeo Admitting Clinician Unavailable Gee Nolasco MD Admitting Clinician +[phone] Bryant Justice MD Admitting Clinician [phone] Payers Payer Name Policy Type Policy Number Effective Date Expirati on Date Source [facility] [id number] 2015 00:00:00 [place] [id number] 2020 00:00:00 MEDICAID PENDING PENDING 2020 00:00:00 Problems Condition Name Condition Details Condition Category Status Onset Date Resolution Date Last Treatment Date Treating Clinician Comments Source History of depression History of depression Disease Active 3-22 00:00: 00 [facility] 39 weeks gestation of 39 weeks gestation of Disease Active 2-05 00:00: 00 [facility] High-risk in third trimester High-risk in third trimester Disease Active 2-03 00:00: 00 [facility] History of COVID-19 History of COVID-19 Disease Active 2-03 00:00: 00 [facility] Abnormal finding in urine Abnormal finding in urine Disease Active 2-03 00:00: 00 [facility] Tubal ligation status Tubal ligation status Disease Active 1-20 00:00: 00 [facility] COVID-19 affecting in third trimester COVID-19 affecting in third trimester Disease Active 1-17 00:00: 00 [facility] Recurrent urinary tract infection affecting in third trimester Recurrent urinary tract infection affecting in third trimester Disease Active 1-17 00:00: 00 [facility] Pre-existi ng diabetes mellitus during in third trimester Pre-existi ng diabetes mellitus during in third trimester Disease Active 2020-03-20 00:00: 00 [facility] Recurrent UTI (urinary tract infection) complicati ng , unspecifie d trimester Recurrent UTI (urinary tract infection) complicati ng , unspecifie d trimester Disease Active 2020-03-20 00:00: 00 [facility] Anemia of mother in , antepartum Anemia of mother in , antepartum Disease Active 2020-03-20 00:00: 00 [facility] High risk , antepartum High risk , antepartum Disease Active 2020-03 00:00: 00 [facility] Pre-existi ng diabetes mellitus affecting in third trimester, antepartum Pre-existi ng diabetes mellitus affecting in third trimester, antepartum Disease Active 2020-03 2-20 00:00: 00 [facility] Anemia of mother in , antepartum Anemia of mother in , antepartum Disease Active 2020-03 2-20 00:00: 00 [facility] Pre-existi ng diabetes mellitus affecting in second trimester, antepartum Pre-existi ng diabetes mellitus affecting in second trimester, antepartum Disease Active 8-25 00:00: 00 [facility] History of gestationa l hypertensi on History of gestationa l hypertensi on Disease Active 8-25 00:00: 00 [facility] UTI in UTI in Disease Active 7-12 00:00: 00 Overview: Formattin g of this note might be different from the original. 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 Failed 3hr gtt [facility] Supervisio n of high-risk Supervisio n of high-risk Disease Active 6-10 00:00: 00 [facility] Depression affecting Depression affecting Disease Active 6-10 00:00: 00 [facility] Multiparit y Multiparit y Disease Active 6-10 00:00: 00 [facility] Depo-Prove ra contracept annelise status Depo-Prove ra contracept annelise status Disease Active 3-13 00:00: 00 [facility] Maternal tobacco use in third trimester Maternal tobacco use in third trimester Disease Active 2-19 00:00: 00 Overview: Formattin g of this note might be different from the original. 5/6cig/da y [facility] 32 weeks gestation of 32 weeks gestation of Disease Resolve d 2021-1 2-23 00:00: 00 2021-06-03 00:00:00 2021-06-03 09:56:47 [facility] Vaginal bleeding in Vaginal bleeding in Disease Resolve d 0 7-26 00:00: 00 2020-10-24 00:00:00 2020-10-24 11:19:41 [facility] History of delivery History of delivery Disease Resolve d 0 6-10 00:00: 00 2020-10-24 00:00:00 2020-10-24 11:19:46 [facility] History of prior with IUGR History of prior with IUGR Disease Resolve d 0 6-10 00:00: 00 2020-10-24 00:00:00 2020-10-24 11:19:57 [facility] History of polyhydram nios History of polyhydram nios Disease Resolve d 6-10 00:00: 00 2020-10-24 00:00:00 2020-10-24 11:19:53 [facility] Depression Depression Disease Resolve d 2014-03 1- 00:00: 00 2020-08-22 00:00:00 2020-08-22 09:23:39 [facility] Pancreatit is Pancreatit is Disease Resolve d 4-08 00:00: 00 2017-09-02 00:00:00 2017-09-02 10:06:04 [facility] Breakthrou gh bleeding on Nexplanon Breakthrou gh bleeding on Nexplanon Disease Resolve d 3-13 00:00: 00 2017-09-02 00:00:00 2017-09-02 10:05:58 [facility] Nexplanon insertion Nexplanon insertion Disease Resolve d 2-19 00:00: 00 2017-09-02 00:00:00 2017-09-02 10:06:02 [facility] Dysmenorrh ea Dysmenorrh ea Disease Resolve d 2-19 00:00: 00 2017-09-02 00:00:00 2017-09-02 10:06:00 [facility] Contracept annelise management Contracept annelise management Disease Resolve d 3-13 00:00: 00 2016-07-30 00:00:00 2016-07-30 10:28:49 [facility] Anemia, Anemia, Disease Resolve d 03-16 00:00: 00 2015-05-03 00:00:00 2015-05-03 12:54:03 [facility] Tobacco use disorder complicati ng , childbirth , or puerperium , antepartum , third trimester Tobacco use disorder complicati ng , childbirth , or puerperium , antepartum , third trimester Disease Resolve d 2014-03 00:00: 00 2015-05-03 00:00:00 2015-05-03 12:53:13 [facility] Vaginal delivery Vaginal delivery Disease Resolve d 03-16 00:00: 00 2015-04-14 00:00:00 2021-09-28 00:39:00 [facility] Gestationa l hypertensi on w/o significan t proteinuri a in 3rd trimester Gestationa l hypertensi on w/o significan t proteinuri a in 3rd trimester Disease Resolve d 2014-03 00:00: 00 2015-04-14 00:00:00 2015-04-14 15:15:36 [facility] Non-reassu ring electronic monitoring tracing Non-reassu ring electronic monitoring tracing Disease Resolve d 2014-03 00:00: 00 2015-03-16 00:00:00 2015-03-16 09:21:11 [facility] distress affecting management of mother distress affecting management of mother Disease Resolve d 2014-03 00:00: 00 2015-03-16 00:00:00 2015-03-16 09:22:07 [facility] IUGR (intrauter ine growth restrictio n) affecting care of mother, third trimester, fetus 1 IUGR (intrauter ine growth restrictio n) affecting care of mother, third trimester, fetus 1 Disease Resolve d 2014-03 00:00: 00 2015-03-16 00:00:00 2015-03-16 09:21:04 [facility] Supervisio n of other high-risk Supervisio n of other high-risk Disease Resolve d 08-03 00:00: 00 2015-03-16 00:00:00 2021-09-28 00:36:06 [facility] Threatened premature labor, third trimester Threatened premature labor, third trimester Disease Resolve d 2014-03 00:00: 00 2015-03-14 00:00:00 2015-03-14 06:06:31 [facility] 36 weeks gestation of 36 weeks gestation of Disease Resolve d 2014-03 00:00: 00 2015-03-14 00:00:00 2015-03-14 06:06:37 [facility] Back pain affecting in second trimester Back pain affecting in second trimester Disease Resolve d 2014-03 00:00: 00 2015-03-14 00:00:00 2015-03-14 06:06:34 [facility] contractio ns, third trimester contractio ns, third trimester Disease Resolve d 2014-03 00:00: 00 2015-03-11 00:00:00 2015-03-11 16:39:02 [facility] Non-reacti ve NST (non-stres s test) Non-reacti ve NST (non-stres s test) Disease Resolve d 2014-03 00:00: 00 2015-03-06 00:00:00 2015-03-06 12:21:55 [facility] URI (upper respirator y infection) URI (upper respirator y infection) Disease Resolve d 2014-03 00:00: 00 2015-03-06 00:00:00 2015-03-06 12:23:16 [facility] Polyhydram nios, antepartum complicati on, third trimester, fetus 1 Polyhydram nios, antepartum complicati on, third trimester, fetus 1 Disease Resolve d 2014-03 00:00: 00 2015-03-06 00:00:00 2015-03-06 12:23:21 [facility] UTI in , antepartum , third trimester UTI in , antepartum , third trimester Disease Resolve d 2014-0311 00:00: 00 2015-03-06 00:00:00 2015-03-06 12:23:44 [facility] contractio ns contractio ns Disease Resolve d 2014-03 2-04 00:00: 00 2015-03-06 00:00:00 2015-03-06 12:23:59 [facility] Tobacco use disorder complicati ng , childbirth , or puerperium , antepartum Tobacco use disorder complicati ng , childbirth , or puerperium , antepartum Disease Resolve d 22 00:00: 00 2015-03-06 00:00:00 2021-09-28 00:36:06 [facility] IUGR (intrauter ine growth restrictio n) affecting care of mother IUGR (intrauter ine growth restrictio n) affecting care of mother Disease Resolve d 2014-03 00:00: 00 2015-02-22 00:00:00 2015-02-22 16:55:07 [facility] SGA (small for gestationa l age), , affecting care of mother, antepartum , second trimester, fetus 1 SGA (small for gestationa l age), , affecting care of mother, antepartum , second trimester, fetus 1 Disease Resolve d 2014-03 0-28 00:00: 00 2015-01-20 00:00:00 2015-01-20 19:30:35 [facility] Headache Headache Disease Resolve d 11-20 00:00: 00 2015-01-20 00:00:00 2021-09-28 00:37:32 [facility] Abdominal pain, other specified site Abdominal pain, other specified site Disease Resolve d 19 00:00: 00 2015-01-20 00:00:00 2015-01-20 19:29:09 [facility] Obesity affecting Obesity affecting Disease Resolve d 2014-03 00:00: 00 2015-01-08 00:00:00 2015-01-08 10:27:36 [facility] Boils Boils Disease Resolve d 2014-03 00:00: 00 2015-01-08 00:00:00 2015-01-08 10:27:25 [facility] Acute cystitis without hematuria Acute cystitis without hematuria Disease Resolve d 2014-03 0 00:00: 00 2015-01-08 00:00:00 2015-01-08 10:27:31 [facility] Dizzy spells Dizzy spells Disease Resolve d 619 00:00: 00 2014-11-20 00:00:00 2014-11-20 18:33:45 [facility] Allergies, Adverse Reactions, Alerts Allergy Name Allergy Type Status Severity Reaction(s) Onset Date Inactive Date Treating Clinician Comments Source Clindamkirk leticia Propensi ty to adverse reaction s Active Hives 10-05 00:00: 00 [facility] CLINDAMY LETICIA DRUG INGREDI Active Hives 10-05 00:00: 00 [facility] Social History Social Habit Start Date Stop Date Quantity Comments Source History of tobacco use 2011-05-14 00:00:00 Cigarette Smoker [facility] History SDOH Alcohol Frequency [facility] History SDOH Alcohol Std Drinks [facility] History SDOH Alcohol Binge [facility] Exposure to SARS-CoV-2 (event) 2021-05-07 00:00:00 2021-06-06 07:59:00 Not sure [facility] History of Social function 2021-06-03 00:00:00 2021-06-03 00:00:00 [facility] Alcohol intake 2021-04-20 00:00:00 2021-04-20 00:00:00 Ex-drinker (finding) [facility] Cigarettes smoked current (pack per day) - Reported 2020-08-22 00:00:00 2020-08-22 00:00:00 [facility] Cigarette pack-years 2020-08-22 00:00:00 2020-08-22 00:00:00 [facility] Alcohol Comment 2017-09-02 00:00:00 2017-09-02 00:00:00 socially [facility] Tobacco Comment 2016-07-30 00:00:00 2016-07-30 00:00:00 5-6 cigarrete per day [facility] Alcoholic beverage intake 2015-06-21 00:00:00 2015-06-21 00:00:00 0 /d [facility] Tobacco use and exposure 2014-08-03 00:00:00 2014-08-03 00:00:00 Smokeless tobacco non-user [facility] Sex assigned at 1990 00:00:00 1990 00:00:00 [facility] Smoking Status Start Date Stop Date Source Smokes tobacco daily 2014-08-03 00:00:00 [facility] Medications Ordered Medication Name Filled Medication Name Start Date Stop Date Current Medication? Ordering Clinician Indication Dosage Frequency Signature (SIG) Comments Components Source SERTraline (ZOLOFT) 50 mg tablet 04-21 11:32: 29 Yes 50mg Take 50 mg by mouth daily. [facility] busPIRone 5 mg tablet 04-21 11:32: 29 Yes 5mg Take 5 mg by mouth 2 (two) times daily. [facility] ascorbic acid, vitamin C, 500 mg tablet 04-21 00:00: 00 06-03 00:00 :00 No [id number] 500mg Take 1 tablet by mouth 3 (three) times daily. [facility] foLIC acid 1 mg tablet 04-21 00:00: 00 06-03 00:00 :00 No [id number] 1mg Take 1 tablet by mouth daily. [facility] ferrous sulfate 325 mg (65 mg iron) tablet 04-21 00:00: 00 06-03 00:00 :00 No [id number] 325mg Take 1 tablet by mouth 3 (three) times daily with meals. [facility] vitamin w/FA tablet 04-21 00:00: 00 06-03 00:00 :00 No [id number] 1{tbl} Take 1 tablet by mouth daily. [facility] docusate calcium 240 mg capsule 04-21 00:00: 06-03 00:00 :00 No [id number] 240mg Take 1 capsule by mouth once daily as needed for Constipati on. [facility] ibuprofen 600 mg tablet 2-07 00:00: 00 06-03 00:00 :00 No [id number] 600mg Take 1 tablet by mouth every 6 (six) hours as needed (Pain). Take with food or milk. [facility] blood sugar diagnostic (TRUE METRIX GLUCOSE TEST STRIP) strip 08-29 00:00: 00 06-03 00:00 :00 No [id number] Check blood glucose 4x dialy [facility] Blood-Gluco se Meter (TRUE METRIX AIR GLUCOSE METER) Kit 08-29 00:00: 00 06-03 00:00 :00 No [id number] Check glucose 4x daily [facility] lancets 28 gauge Misc 08-29 00:00: 00 06-03 00:00 :00 No [id number] Check blood glucose 4x daily [facility] Immunizations Ordered Immunization Name Filled Immunization Name Date Status Comments Source TDAP 2021-02-13 00:00:00 Completed [facility] TDAP 2021-02-13 00:00:00 Completed [facility] TDAP 2021-02-13 00:00:00 Completed HPV9 2017-09-02 00:00:00 Completed [facility] HPV9 2017-09-02 00:00:00 Completed [facility] HPV9 2017-09-02 00:00:00 Completed [facility] HPV 2015-07-08 00:00:00 Completed [facility] HPV 2015-07-08 00:00:00 Completed [facility] HPV 2015-07-08 00:00:00 Completed HPV 2015-05-01 00:00:00 Completed [facility] HPV 2015-05-01 00:00:00 Completed [facility] HPV 2015-05-01 00:00:00 Completed [facility] TDAP 2015-01-17 00:00:00 Completed [facility] TDAP 2015-01-17 00:00:00 Completed [facility] TDAP 2015-01-17 00:00:00 Completed [facility] TDAP Unknown Completed [facility] HPV Unknown Completed [facility] HPV9 Unknown Completed [facility] Vital Signs Vital Name Observation Time Observation Value Denzel valentine Systolic blood pressure 2021-06-03 14:46:00 117 mm[Hg] [facility] Diastolic blood pressure 2021-06-03 14:46:00 80 mm[Hg] [facility] Heart rate 2021-06-03 14:46:00 85 /min [facility] Body temperature 2021-06-03 14:46:00 36.56 Flaca [facility] Respiratory rate 2021-06-03 14:46:00 16 /min [facility] Body height 2021-06-03 14:46:00 154.9 cm [facility] Body weight 2021-06-03 14:46:00 48.988 kg [facility] BMI 2021-06-03 14:46:00 20.41 kg/m2 [facility] Procedures Procedure Date / Time Performed Performing Clinician Source DIABETES TESTING REPORTS 2021-04-03 06:01:00 Doc tor Unassigned, Edna [facility] FL CHOLANGIOGRAM OR 2015-06-25 19:38:00 Ephraim Abreu [facility] Encounters Start Date/Time End Date/Time Encounter Type Admission Type Attending Clinicians Care Facility Care Department Encounter ID Source 2021-03-07 01:26:59 Outpatient P [facility] [id number] [facility] 2021-01-13 01:28:31 Emergency [facility] [id number] [facility] 2021-01-10 08:46:25 Emergency [facility] [id number] [facility] 2021-01-09 17:43:35 Emergency [facility] [id number] [facility] 2015-06-25 00:00:00 2024-04-29 04:17:35 Orders Only Doctor Unassigned, Edna Doctor Unassigned, Edna [facility] ([facility]) [id number] [facility] 2021-04-03 00:00:00 2024-04-29 02:50:48 Orders Only Karon Saenz Maria C [facility] MATERNAL & CHILD [facility] [id number] [id number] [id number] [id number] [facility] 2021-07-21 08:30:00 2021-07-21 08:30:00 Outpatient R [facility] [id number] [facility] 2021-07-21 08:30:00 2021-07-21 08:30:00 Outpatient R COURTNEY CHUNG [facility] [id number] [facility] 2021-06-06 07:45:00 2021-06-06 08:15:37 Sports Writer Visit Lab, [facility] Courtney Chung [facility] STRUCTURAL [facility] & CHILD [facility] .840.114 [id number] [id number] [id number] [facility] 2021-06-06 07:45:00 2021-06-06 07:45:00 Outpatient R [facility] [id number] [facility] 2021-06-06 07:45:00 2021-06-06 07:45:00 Outpatient R COURTNEY CHUNG [facility] [id number] [facility] 2021-06-03 09:30:00 2021-06-03 10:19:36 Outpatient R COURTNEY CHUNG [facility] [id number] [facility] 2021-06-03 09:30:00 2021-06-03 10:19:36 Office Visit Courtney Chung [facility] & CHILD [facility] 1..840.114 [id number] [id number] [id number] [facility] 2021-06-03 09:30:00 2021-06-03 09:30:00 Outpatient R COTY CHUNGKONSTANTIN [facility] [id number] [facility] 2021-05-09 09:15:00 2021-05-09 10:25:14 Outpatient R CHUNG, ROSCARMELA [facility] [id number] [facility] 2021-05-09 09:15:00 2021-05-09 10:25:14 Routine Visit Chung, Courtney Ang [facility] 1.114 [id number] [id number] [id number] [facility] 2021-05-09 09:15:00 2021-05-09 10:25:14 [facility] [id number] 2021-04-19 06:42:00 2021-04-21 11:32:00 [facility] [id number] 2021-04-19 06:42:00 2021-04-21 11:32:00 Hospital Encounter Kyara Nolascoio Boubacar [facility] 1.114 350.1.13.10 [id number] [id number] [facility] 2021-04-21 00:00:00 2021-04-21 00:00:00 Telephone Joanie Walton [facility] & CHILD [facility] 1.114 350.1.13.10 [id number] [id number] [facility] 2021-04-21 00:00:00 2021-04-21 00:00:00 Patient Secure Msg Doctor Unassigned, Edna [facility] 1.114 350.1.13.10 [id number] [id number] [facility] 2021-04-19 12:00:00 2021-04-20 02:02:00 Anesthesia Event ThapaLaura, [facility] [id number] 350.1.13.10 [id number] [id number] [facility] 2021-04-19 06:42:00 2021-04-19 06:42:00 Inpatient P MERCY, GEE [facility] RAI [id number] [facility] 2021-04-17 12:45:00 2021-04-17 13:29:55 Outpatient R JOANIE WALTON [facility] [id number] [facility] 2021-04-17 12:45:00 2021-04-17 13:29:55 Routine Visit Risk, Ang-Rmchp-N p/High Joanie Walton [facility] MATERNAL & CHILD [facility] 1..840.114 350.1.13.10 [id number] [id number] [facility] 2021-04-17 12:30:00 2021-04-17 12:30:00 Outpatient R [facility] [id number] [facility] 2021-04-15 12:45:00 2021-04-15 13:30:15 Outpatient R HERVE HOYT [facility] [id number] [facility] 2021-04-15 12:45:00 2021-04-15 13:30:15 Routine Visit Herve Hoyt [facility] & CHILD [facility] 1.2840.114 350.1.13.10 4.2.7.2.686 [id number] [facility] 2021-04-15 12:30:00 2021-04-15 12:30:00 Outpatient R [facility] [id number] [facility] 2021-04-15 00:00:00 2021-04-15 00:00:00 Orders Only Doctor Unassigned, Edna [facility] 1.0.114 350.1.13.10 4.2.7.2.686 [id number] [id number] [facility] 2021-04-11 00:00:00 2021-04-11 00:00:00 Telephone Herve Hoyt [facility] & CHILD [facility] 1.0.114 350.1.13.10 4.2.7.2.686 [id number] 107 [id number] [facility] 2021-04-11 00:00:00 2021-04-11 00:00:00 Nurse Triage Marisa Goss [facility] 1..114 350.1.13.10 4.2.7.2.686 [id number] [facility] 2021-04-10 12:45:00 2021-04-10 13:40:21 Outpatient R JOANIE WALTON [facility] [id number] [facility] 2021-04-10 12:45:00 2021-04-10 13:40:21 Routine Visit Risk, Ang-Rmchp-N p/High Joanie Walton [facility] & CHILD [facility] 1..114 350.1.13.10 4.2.7.2.686 [id number] 107 [id number] [facility] 2021-04-10 12:30:00 2021-04-10 12:30:00 Outpatient [facility] [id number] [facility] 2021-04-08 00:00:00 2021-04-08 00:00:00 Abstract Herve Hoyt [facility] & CHILD [facility] 1..114 350.1.13.10 4.2.7.2.686 [id number] 107 [id number] [facility] 2021-04-07 15:00:00 2021-04-07 15:30:00 Sports Writer Visit Ultrasound, Yazan Harrison [facility] MATERNAL & CHILD [facility] 1.114 350.1.13.10 4.2.7.2.686 [id number] [facility] 2021-04-07 15:00:00 2021-04-07 15:01:06 Outpatient P YAZAN OCAMPO SHANNON [facility] [id number] [facility] 2021-04-07 15:00:00 2021-04-07 15:00:00 Outpatient YAZAN JIMÉNEZ SHANNON [facility] [id number] [facility] 2021-04-07 14:00:00 2021-04-07 14:29:59 Routine Visit Herve Hoyt [facility] MATERNAL & CHILD [facility] 1..114 350.1.13.10 4.2.7.2.686 [id number] 107 [id number] [facility] 2021-04-07 00:00:00 2021-04-07 00:00:00 Orders Only Doctor Unassigned, Edna [facility] 1..114 350.1.13.10 4.2.7.2.686 [id number] [facility] 2021-04-03 13:15:00 2021-04-03 13:20:52 Outpatient R MARTITA TRUJILLO [facility] [id number] [facility] 2021-04-03 13:15:00 2021-04-03 13:20:52 Routine Visit Risk, YoandyRmchp-N p/High Martita Trujillo [facility] MATERNAL & CHILD [facility] 1..114 350.1.13.10 4.2.7.2.686 [id number] 107 [id number] [facility] 2021-04-01 10:15:00 2021-04-01 10:43:29 Outpatient R HERVE HOYT [facility] [id number] [facility] 2021-04-01 10:15:00 2021-04-01 10:43:29 Routine Visit MoralescaterinaHerve leon [facility] MATERNAL & CHILD [facility] 1.2840.114 350.1.13.10 4.2.7.2.686 [id number] 107 [id number] [facility] 2021-04-01 00:00:00 2021-04-01 00:00:00 Orders Only Doctor Unassigned, Edna [facility] 1.0.114 350.1.13.10 4.2.7.2.686 [id number] [id number] [facility] 2021-03-27 12:45:00 2021-03-27 15:29:27 Outpatient R JOANIE WALTON [facility] [id number] [facility] 2021-03-27 12:45:00 2021-03-27 15:29:27 Routine Visit Risk, Ang-Rmchp-N p/High Joanie Walton [facility] MATERNAL & CHILD [facility] 1.84.114 350.1.13.10 4.2.7.2.686 [id number] 107 [id number] [facility] 2021-03-25 13:45:00 2021-03-25 15:09:34 Outpatient R COURTNEY CHUNG [facility] [id number] [facility] 2021-03-25 13:45:00 2021-03-25 15:09:34 Routine Visit Courtney Chung [facility] & CHILD [facility] 1.284.114 350.1.13.10 4.2.7.2.686 [id number] 107 [id number] [facility] 2021-03-25 00:00:00 2021-03-25 00:00:00 Orders Only Doctor Unassigned, Edna [facility] 1.114 350.1.13.10 4.2.7.2.686 [id number] [id number] [facility] 2021-03-20 15:30:00 2021-03-20 15:30:00 Outpatient R COURTNEY CHUNG [facility] [id number] [facility] 2021-03-20 14:45:00 2021-03-20 14:45:00 Outpatient [facility] [id number] [facility] 2021-03-20 00:00:00 2021-03-20 00:00:00 Telephone Herve Hoyt [facility] & CHILD [facility] 1.84.114 350.1.13.10 4.2.7.2.686 [id number] 107 [id number] [facility] 2021-03-17 08:00:00 2021-03-17 08:55:39 Outpatient R HERVE HOYT [facility] [id number] [facility] 2021-03-17 08:00:00 2021-03-17 08:55:39 Routine Visit Herve Hoyt [facility] & CHILD [facility] ..114 350.1.13.10 4.2.7.2.686 [id number] 107 [id number] [facility] 2021-03-13 15:30:00 2021-03-13 15:56:15 Outpatient R HERVE HOYT [facility] [id number] [facility] 2021-03-13 15:30:00 2021-03-13 15:56:15 Routine Visit Herve Hoyt [facility] & CHILD [facility] 1..114 350.1.13.10 4.2.7.2.686 [id number] 107 [id number] [facility] 2021-03-13 15:00:00 2021-03-13 15:00:00 Outpatient R [facility] [id number] [facility] 2021-03-13 00:00:00 2021-03-13 00:00:00 Orders Only Doctor Unassigned, Edna [facility] 1..840.114 350.1.13.10 4.2.7.2.686 [id number] [id number] [facility] 2021-03-11 00:00:00 2021-03-11 00:00:00 Abstract Herve Hoyt [facility] & CHILD [facility] 1..840.114 350.1.13.10 4.2.7.2.686 [id number] 107 [id number] [facility] 2021-03-10 16:00:00 2021-03-10 16:19:00 Routine Visit Herve Hoyt [facility] & CHILD [facility] 1..840.114 350.1.13.10 4.2.7.2.686 [id number] 107 [id number] [facility] 2021-03-10 15:00:00 2021-03-10 15:37:51 Outpatient JOSE LAW [facility] [id number] [facility] 2021-03-10 15:30:00 2021-03-10 15:30:00 Outpatient R YAZAN OCAMPO SHANNON [facility] [id number] [facility] 2021-03-10 15:00:00 2021-03-10 15:30:00 Sports Writer Visit Ultrasound, Yazan Harrison Hassan M [facility] & CHILD [facility] 1..840.114 350.1.13.10 4.2.7.2.686 [id number] [facility] 2021-03-06 19:09:00 2021-03-07 01:26:00 Outpatient P BRYANT JUSTICE [facility] RAI [id number] [facility] 2021-03-06 19:09:00 2021-03-07 01:26:00 Hospital Encounter Bryant Justice [facility] 1..114 350.1.13.10 4.2.7.2.686 [id number] [facility] 2021-03-06 16:00:00 2021-03-06 16:18:32 Outpatient R HERVE HOYT [facility] [id number] [facility] 2021-03-06 16:00:00 2021-03-06 16:18:32 Routine Visit Herve Hoyt [facility] STRUCTURAL [facility]ELDER [facility] MATERNAL & CHILD [facility] 1.840.114 350.1.13.10 4.2.7.2.686 [id number] 107 [id number] [facility] 2021-03-06 15:30:00 2021-03-06 15:30:00 Outpatient R [facility] [id number] [facility] 2021-03-06 00:00:00 2021-03-06 00:00:00 Orders Only Doctor Unassigned, Edna [facility] 1.84.114 350.1.13.10 4.2.7.2.686 [id number] [facility] 2021-03-03 15:30:00 2021-03-03 15:45:00 Routine Visit Herve Hoyt [facility] STR[facility] & CHILD [facility] 1..114 350.1.13.10 4.2.7.2.686 [id number] [facility] 2021-03-03 15:30:00 2021-03-03 15:30:00 Outpatient R HERVE HOYT [facility] [id number] [facility] 2021-03-03 00:00:00 2021-03-03 00:00:00 Orders Only Doctor Unassigned, Edna [facility] 1.84.114 350.1.13.10 4.2.7.2.686 [id number] [id number] [facility] 2021-02-27 14:30:00 2021-02-27 15:59:36 Outpatient R JOANIE WALTON [facility] [id number] [facility] 2021-02-27 14:30:00 2021-02-27 15:59:36 Routine Visit Risk, Ang-Rmchp-N p/High Joanie Walton [facility] STRUCTURAL [facility]ELDER [facility] & CHILD [facility] 1.840.114 350.1.13.10 4.2.7.2.686 [id number] 107 [id number] [facility] 2021-02-24 00:00:00 2021-02-24 00:00:00 Telephone Joanie Walton [facility] STRUCTURAL [facility]ELDER [facility] MATERNAL & CHILD [facility] 1.840.114 350.1.13.10 4.2.7.2.686 [id number] 107 [id number] [facility] 2021-02-13 14:30:00 2021-02-13 15:43:59 [facility] [id number] [facility] 2021-02-13 14:30:00 2021-02-13 15:43:59 Routine Visit Risk, Gustavo-Rmchp-N p/High Nadine [facility] STRUCTURAL WELDER [facility] & CHILD [facility] 1.840.114 350.1.13.10 4.2.7.2.686 [id number] 107 [id number] [facility] 2021-02-10 15:16:09 2021-02-10 15:46:09 Sports Writer Visit Ultrasound, Yazan Harrison Sangeeta [facility] STRUCTURAL [facility]DER [facility] 1.2.840.114 350.1.13.10 4.2.7.2.686 [id number] [facility] 2021-02-10 15:00:00 2021-02-10 15:00:00 Outpatient VELASQUEZ SANTANA SANGEETA [facility] [id number] [facility] 2021-01-23 14:30:00 2021-01-23 15:42:33 Outpatient JOANIE DANIELLE [facility] [id number] [facility] 2021-01-23 14:17:10 2021-01-23 15:42:33 Routine Visit Risk, YoandyRmchp-N p/High Joanie Walton [facility] STRUCTURAL WELDER [facility] MATERNAL & CHILD HEALTH [facility] 1.2.840.114 350.1.13.10 4.2.7.2.686 [id number] 107 [id number] [facility] 2021-01-13 13:02:24 2021-01-13 13:32:24 Sports Writer Visit Ultrasound, Yazan Harrison [facility] STRUCTURAL [facility]DER [facility] MATERNAL & CHILD [facility] 1.2.840.114 350.1.13.10 4.2.7.2.686 [id number] [facility] 2021-01-13 13:00:00 2021-01-13 13:00:00 Outpatient YAZAN JIMÉNEZ SHANNON [facility] [id number] [facility] 2021-01-13 13:00:00 2021-01-13 13:00:00 Outpatient Sav [facility] [id number] [facility] 2021-01-02 14:30:00 2021-01-02 15:26:09 Outpatient JOANIE DANIELLE [facility] [id number] [facility] 2021-01-02 14:17:18 2021-01-02 15:26:09 Routine Visit Risk, YoandyRmchp-N p/High Joanie Walton [facility] STRUCTURAL [facility]ELDER [facility] MATERNAL & CHILD [facility] 1.2.840.114 350.1.13.10 4.2.7.2.686 [id number] [facility] 2021-01-02 00:00:00 2021-01-02 00:00:00 Orders Only Doctor Unassigned, Edna [facility] 1.2.840.114 350.1.13.10 4.2.7.2.686 [id number] [facility] 2020-12-13 00:00:00 2020-12-13 00:00:00 Telephone Joanie Walton [facility] STRUCTURAL [facility]ELDER [facility] MATERNAL & CHILD [facility] 1.2.840.114 350.1.13.10 4.2.7.2.686 [id number] [facility] 2020-12-12 00:00:00 2020-12-12 00:00:00 Telephone , Gerardochp-N p/ [facility] STRUCTURAL [facility]ELDER [facility] MATERNAL & CHILD [facility] 1.2.840.114 350.1.13.10 4.2.7.2.686 [id number] 107 [id number] [facility] 2020-12-11 00:00:00 2020-12-11 00:00:00 Telephone Joanie Walton [facility] STRUCTURAL [facility]ELDER [facility] MATERNAL & CHILD [facility] 1.2.840.114 350.1.13.10 4.2.7.2.686 [id number] [facility] 2020-12-09 10:29:12 2020-12-09 11:44:12 Sports Writer Visit Ultrasound, Bryant Jacinto [facility] STRUCTURAL [facility]ELDER [facility] MATERNAL & CHILD [facility] 1.2.840.114 350.1.13.10 4.2.7.2.686 [id number] [facility] 2020-12-09 10:45:00 2020-12-09 10:45:00 Outpatient P [facility] [id number] [facility] 2020-12-09 00:00:00 2020-12-09 00:00:00 Abstract Herve Hoyt Rodriguez [facility] STRUCTURAL [facility]ELDER [facility] & CHILD [facility] 1.840.114 350.1.13.10 4.2.7.2.686 [id number] 107 [id number] [facility] 2020-12-05 13:45:26 2020-12-05 14:56:51 Routine Visit Risk, Ang-Rmchp-N p/High Joanie Walton [facility] 1.840.114 350.1.13.10 4.2.7.2.686 [id number] 107 [id number] [facility] 2020-12-05 14:00:00 2020-12-05 14:00:00 Outpatient R [facility] [id number] [facility] 2020-11-21 14:40:58 2020-11-21 15:33:06 Routine Visit Risk, Ang-Rmchp-N p/High Joanie Walton [facility] CHILD [facility] 1.840.114 350.1.13.10 4.2.7.2.686 [id number] 107 [id number] [facility] 2020-11-21 15:00:00 2020-11-21 15:00:00 Outpatient R [facility] [id number] [facility] 2020-11-06 14:17:00 2020-11-06 15:33:18 Routine Visit Risk, Ang-Rmchp-N p/High Joanie Walton [facility] 1.840.114 350.1.13.10 4.2.7.2.686 [id number] 107 [id number] [facility] 2020-11-06 14:30:00 2020-11-06 14:30:00 Outpatient R [facility] [id number] [facility] 2020-11-06 00:00:00 2020-11-06 00:00:00 Orders Only Doctor Unassigned, Edna [facility] 1..114 350.1.13.10 4.2.7.2.686 [id number] [facility] 2020-11-04 09:05:59 2020-11-04 10:18:27 Office Visit Jesse Candelario [facility] 1..114 350.1.13.10 4.2.7.2.686 [id number] [facility] 2020-11-04 09:30:00 2020-11-04 09:30:00 Outpatient R JESSE CANDELARIO [facility] [id number] [facility] 2020-10-28 09:00:00 2020-10-28 09:00:00 Outpatient R DELIA SMITH [facility] [id number] [facility] 2020-10-28 00:00:00 2020-10-28 00:00:00 Telephone Herve Hoyt [facility] STRUCTURAL WELDER [facility] MATERNAL & CHILD [facility]ALTH [facility] .84.114 350.1.13.10 4.2.7.2.686 [id number] 107 [id number] [facility] 2020-10-22 14:43:49 2020-10-22 15:33:11 Routine Visit Herve Hoyt [facility] STRUCTURAL [facility] MATERNAL & CHILD [facility] ..114 350.1.13.10 4.2.7.2.686 [id number] 107 [id number] [facility] 2020-10-22 15:00:00 2020-10-22 15:00:00 Outpatient R HERVE HOYT [facility] [id number] [facility] 2020-10-22 15:00:00 2020-10-22 15:00:00 Outpatient R HERVE HOYT [facility] [id number] [facility] 2020-10-16 00:00:00 2020-10-16 00:00:00 Abstract Herve Hoyt [facility] STRUCTURAL WELDER [facility] & CHILD [facility] 1..840.114 350.1.13.10 4.2.7.2.686 [id number] 107 [id number] [facility] 2020-10-14 10:02:04 2020-10-14 10:59:14 Sports Writer Visit Lab, Paola Burnham [facility] STRUCTURAL [facility]ELDER [facility] MATERNAL & CHILD [facility] 1..840.114 350.1.13.10 4.2.7.2.686 [id number] [facility] 2020-10-14 10:01:46 2020-10-14 10:46:46 Sports Writer [facility] Smith George R [facility] STRUCTURAL [facility]ELDER [facility] & CHILD [facility] 1..840.114 350.1.13.10 4.2.7.2.686 [id number] [facility] 2020-10-14 10:00:00 2020-10-14 10:00:00 Outpatient P DELIA SMITH [facility] [id number] [facility] 2020-10-10 00:00:00 2020-10-10 00:00:00 Telephone Herve Hoyt [facility] STRUCTURAL WELDER [facility] CHILD [facility] 1..840.114 350.1.13.10 4.2.7.2.686 [id number] 107 [id number] [facility] 2020-10-07 15:15:00 2020-10-07 15:15:00 Outpatient R HERVE HOYT [facility] [id number] [facility] 2020-10-07 14:40:32 2020-10-07 15:07:21 Routine Visit Herve Hoyt [facility] STRUCTURAL WELDER [facility] & CHILD [facility] 1.2.840.114 350.1.13.10 4.2.7.2.686 [id number] 107 [id number] [facility] 2020-10-07 11:00:00 2020-10-07 11:00:00 Outpatient P [facility] [id number] [facility] 2020-10-07 00:00:00 2020-10-07 00:00:00 Orders Only Doctor Unassigned, Edna [facility] 1.2840.114 350.1.13.10 4.2.7.2.686 [id number] [facility] 2020-09-27 00:00:00 2020-09-27 00:00:00 Telephone Herve Hoyt Rodriguez [facility] STRUCTURAL WELDER [facility] CHILD [facility] 1.2840.114 350.1.13.10 4.2.7.2.686 [id number] 107 [id number] [facility] 2020-09-23 14:45:30 2020-09-23 15:34:41 Routine Visit MoralesHerve stratton Rodriguez [facility] STRUCTURAL WELDER [facility] & CHILD [facility] 1.2840.114 350.1.13.10 4.2.7.2.686 [id number] 107 [id number] [facility] 2020-09-23 15:00:00 2020-09-23 15:00:00 Outpatient R HERVE HOYT [facility] [id number] [facility] 2020-09-23 00:00:00 2020-09-23 00:00:00 Orders Only Doctor Unassigned, Edna [facility] 1.2.114 350.1.13.10 4.2.7.2.686 [id number] [facility] 2020-09-17 00:00:00 2020-09-17 00:00:00 Abstract Herve Hoyt Rodriguez [facility] STRUCTURAL WELDER [facility] MATERNAL & CHILD [facility] 1.0.114 350.1.13.10 4.2.7.2.686 [id number] 107 [id number] [facility] 2020-09-16 15:06:26 2020-09-16 15:36:26 Sports Writer Visit Ultrasound, Arnulfo Leon [facility] 1.114 350.1.13.10 4.2.7.2.686 [id number] [facility] 2020-09-16 15:15:00 2020-09-16 15:15:00 Outpatient P [facility] [id number] [facility] 2020-09-12 09:00:00 2020-09-12 09:00:00 Outpatient R [facility] [id number] [facility] 2020-09-09 09:04:51 2020-09-09 10:20:12 Routine Visit Faculty, Velasquez Salguero [facility] & CHILD [facility] 1.114 350.1.13.10 4.2.7.2.686 [id number] [facility] 2020-09-09 09:30:00 2020-09-09 09:30:00 Outpatient R VELASQUEZ SPARKS SANGEETA [facility] [id number] [facility] 2020-09-09 00:00:00 2020-09-09 00:00:00 Orders Only Doctor Unassigned, Edna [facility] 1..114 350.1.13.10 4.2.7.2.686 [id number] [facility] 2020-09-02 09:40:36 2020-09-02 10:23:15 Nurse Visit Visit, Bryant Cm [facility] STRUCTURAL WELDER [facility] & CHILD [facility] ..114 350.1.13.10 4.2.7.2.686 [id number] [facility] 2020-09-02 10:00:00 2020-09-02 10:00:00 Outpatient R [facility] [id number] [facility] 2020-08-29 00:00:00 2020-08-29 00:00:00 Telephone Herve Hoyt [facility] ..114 350.1.13.10 4.2.7.2.686 [id number] [facility] 2020-08-29 00:00:00 2020-08-29 00:00:00 Telephone Herve Hoyt [facility] ..114 350.1.13.10 4.2.7.2.686 [id number] [facility] 2020-08-29 00:00:00 2020-08-29 00:00:00 Velasquez Daley [facility] .84.114 350.1.13.10 4.2.7.2.686 [id number] [facility] 2020-08-28 07:51:41 2020-08-28 08:14:09 Sports Writer Visit Lab, Herve Willoughby [facility] ..114 350.1.13.10 4.2.7.2.686 [id number] [facility] 2020-08-28 08:00:00 2020-08-28 08:00:00 Outpatient R HERVE [facility] [id number] [facility] 2020-08-27 19:20:00 2020-08-27 21:22:00 Emergency Gayle Bryson [facility] 1.2.840.114 350.1.13.10 4.2.7.2.686 [id number] [facility] 2020-08-26 00:00:00 2020-08-26 00:00:00 Telephone , Ang-Rmchp-N p/High [facility] & [facility]ILD [facility] 1.2.840.114 350.1.13.10 4.2.7.2.686 [id number] 107 [id number] [facility] 2020-08-26 00:00:00 2020-08-26 00:00:00 Telephone Herve Hoyt [facility] 1.2.840.114 350.1.13.10 4.2.7.2.686 [id number] [facility] 2020-08-23 00:00:00 2020-08-23 00:00:00 Telephone Herve Hoyt [facility] 1.2.840.114 350.1.13.10 4.2.7.2.686 [id number] [facility] 2020-08-22 08:31:27 2020-08-22 09:46:24 Initial Visit Herve Hoyt [facility] 1.2.840.114 350.1.13.10 4.2.7.2.686 [id number] [facility] 2020-08-22 08:00:00 2020-08-22 08:00:00 Outpatient R HERVE [facility] [id number] [facility] 2020-08-22 00:00:00 2020-08-22 00:00:00 Orders Only Doctor Unassigned, Edna [facility] 1.2.840.114 350.1.13.10 4.2.7.2.686 [id number] [facility] 2019-10-06 17:58:02 2019-10-06 19:25:00 Emergency Delilah Vidal [facility] 1.2.840.114 350.1.13.10 4.2.7.2.686 [id number] [facility] 2019-07-12 00:00:00 2019-07-12 00:00:00 Telephone Pcp, Patient Does Not Have A [facility] MATERNAL [facility] [id number] [facility] 2019-06-23 17:24:17 2019-06-23 18:48:00 Emergency Teressa Chnael [facility] [id number] [facility] 2019-05-02 18:05:32 2019-05-02 18:34:00 Emergency Sarah Palacio [facility] [id number] [facility] Results Test Description Test Time Test Comments Results Resul t Comments Source CHOLANGIOGRAM, [place] 2015-06-14 2 20:16:00 *.*.*.*.*.*.*.*.*.*.* .*.*.*FINAL*.*.*.*.*. *.*.*.*.*.*.*.*.*.*HI STORY: ?Chronic cholecystitis with cholelithiasis. FINDINGS: 2 digital images of [place] cholangiogram recorded show a catheterinserted into the cystic duct with contrast medium outlining short cysticduct. Filling defects are seen in the common hepatic duct and proximalportion of common bile duct which could be bubbles. Opacified portion ofthe common bile duct appears normal with contrast medium noted into theduodenum. CONCLUSIONS: Multiple filling defects in common hepatic duct and proximalcommon bile duct, probably inadvertently introduced air bubbles during ORcholangiogram study. ?Personally interpreted by: EVELIN RENO MD /Signed/ EVELIN RENO MD [facility]
--- NOTE | 2024-12-16 17:52 | ER ---
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 10/22. Coronavirus screen: Vaccine status: Patient reports receiving the 2nd dose of the covid vaccine. Ebola Screen: No symptoms or risks identified at this time. Initial Sepsis Screen: Does the patient meet any 2 criteria? HR > 90 bpm. Does the patient have a suspected source of infection? No. Patient's initial sepsis screen is negative. Risk Assessment: Do you want to hurt yourself or someone else? Patient reports no desire to harm self or others. Onset of symptoms was December 16, 2024. 17:46 Method Of Arrival: Ambulatory [facility] 17:46 Acuity: RUDY 4 me1 Historical: - Allergies: 17:48 No Known Allergies; me1 - PMHx: 17:48 depressive disorder; me1 - PSHx: 17:48 Cholecystectomy; me1 - Immunization history:: Adult Immunizations up to date. - Infectious Disease History:: Denies. - Social history:: Smoking status: Reported history of juuling and/or vaping. Screenin:14 [facility] ED Fall Risk Assessment (Adult) History of falling in the last 3 months, db including since admission No falls in past 3 months (0 pts) Confusion or Disorientation No (0 pts) Intoxicated or Sedated No (0 pts) Impaired Gait No (0 pts) Mobility Assist Device Used No (0 pt) Altered Elimination No (0 pt) Score/Fall Risk Level 0 - 2 = Low Risk Oriented to surroundings, Maintained a safe environment. Abuse screen: Denies threats or abuse. Denies injuries from another. Nutritional screening: No deficits noted. Tuberculosis screening: No symptoms or risk factors identified. Assessment: 18:14 Reassessment: Patient appears in no apparent distress at this time. Patient and/or db family updated on plan of care and expected duration. Pain level reassessed. Patient is alert, oriented x 3, equal unlabored respirations, skin warm/dry/pink. General: Appears in no apparent distress. comfortable, Behavior is calm, cooperative. Pain: Complains of pain in neck. Neuro: Level of Consciousness is awake, alert, obeys commands, Oriented to person, place, time, situation. Respiratory: Airway is patent Respiratory effort is even, unlabored, Respiratory pattern is regular, symmetrical. Musculoskeletal: Circulation, motion, and sensation intact. Capillary refill < 3 seconds, Range of motion: intact in all extremities. Vital Signs: 17:46 BP 120 / 90; Pulse 110; Resp 20; Temp 98.1; Pulse Ox 97% ; Weight 47.63 kg; Height 5 me1 ft. 1 in. ; Pain 8/10; 17:46 Body Mass Index 19.84 (47.63 kg, 154.94 cm) me1 17:46 Pain Scale: Adult [facility] ED Course: 17:38 Patient arrived in ED. ts1 17:44 Kristan Barrett MD is Attending Physician. sp3 17:45 Adelina Snowden, JAYLENE is Primary Nurse. me1 17:48 Triage completed. me1 17:48 Arm band placed on Patient placed in an exam room. me1 17:55 Virgen Mc RN is Primary Nurse. db 18:14 Patient has correct armband on for positive identification. Bed in low position. Call db light in reach. Side rails up X 1. Provided Education on: DISCHARGE. Pulse ox on. NIBP on. Warm blanket given. Pillow given. 18:14 No provider procedures requiring assistance completed. Patient did not have IV access db during this emergency room visit. Administered Medications: 18:06 Drug: Ketorolac IM 30 mg IM once Route: IM; Site: left deltoid; db 18:16 Follow up: Response: No adverse reaction db Medication: 18:14 VIS not applicable for this client. db Outcome: 17:52 Discharge ordered by . sp3 18:14 Discharged to home ambulatory, db 18:14 Condition: stable 18:14 Discharge instructions given to patient, Instructed on discharge instructions, follow up and referral plans. Prescriptions given X 2, 18:16 Patient left the ED. db Signatures: Kristan Barrett MD MD sp3 Virgen Mc, JAYLENE RN db Sarah Saez PAS BANNER ts1 Eddleman, Adelina, RN RN me1
--- NOTE | 2024-12-16 17:52 | EDPHYS ---
Physician Documentation [facility] Name: Ellen Cowan Age: 34 yrs Sex: Female : 1990 Arrival Date: 12/16/2024 Time: 17:34 Bed 14 Private MD: ED Physician Kristan Barrett HPI: 12/16 17:48 This 34 yrs old Unknown Female presents to ER via Ambulatory with complaints of Neck sp3 Problem, Back Pain. 17:48 34-year-old female with history of depression presents to the ED with chief complaint sp3 left-sided back pain in the trapezius muscle footprint. 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 She has taken Tylenol 1 dose for the pain. She denies any other symptoms including anterior chest pain, shortness of breath, abdominal pain, vomiting, diarrhea, or any other signs or symptoms on ROS at this time. Similar episode in the past some years ago but not this bad according the patient.. Historical: - Allergies: 17:48 No Known Allergies; me1 - PMHx: 17:48 depressive disorder; me1 - PSHx: 17:48 Cholecystectomy; me1 - Immunization history:: Adult Immunizations up to date. - Infectious Disease History:: Denies. - Social history:: Smoking status: Reported history of juuling and/or vaping. ROS: 17:50 Constitutional: Negative for fever, chills, and weight loss, Eyes: Negative for injury, sp3 pain, redness, and discharge, Neck: Negative for injury, pain, and swelling, Cardiovascular: Negative for chest pain, palpitations, and edema, Respiratory: Negative for shortness of breath, cough, wheezing, and pleuritic chest pain, Abdomen/GI: Negative for abdominal pain, nausea, vomiting, diarrhea, and constipation, Skin: Negative for injury, rash, and discoloration, Neuro: Negative for headache, weakness, numbness, tingling, and seizure, Psych: Negative for depression, anxiety, suicide ideation, homicidal ideation, and hallucinations, Allergy/Immunology: Negative for hives, rash, and allergies, Endocrine: Negative for neck swelling, polydipsia, polyuria, polyphagia, and marked weight changes, 17:50 All other systems are negative, Exam: 17:50 Constitutional: This is a well developed, well nourished patient who is awake, alert, sp3 and in no acute distress. Head/Face: Normocephalic, atraumatic. Eyes: Pupils equal round and reactive to light, extra-ocular motions intact. Lids and lashes normal. Conjunctiva and sclera are non-icteric and not injected. Cornea within normal limits. Periorbital areas with no swelling, redness, or edema. ENT: Nares patent. No nasal discharge, no septal abnormalities noted. External auditory canals are clear. Oropharynx with no redness, swelling, or masses, exudates, or evidence of obstruction, uvula midline. Mucous membranes moist. Neck: Trachea midline, no thyromegaly or masses palpated, and no cervical lymphadenopathy. Supple, full range of motion without nuchal rigidity, or vertebral point tenderness. No Meningismus. Chest/axilla: Normal chest wall appearance and motion. Nontender with no deformity. No lesions are appreciated. Cardiovascular: Regular rate and rhythm with a normal S1 and S2. No gallops, murmurs, or rubs. Normal PMI, no JVD. No pulse deficits. Respiratory: Lungs have equal breath sounds bilaterally, clear to auscultation and percussion. No rales, rhonchi or wheezes noted. No increased work of breathing, no retractions or nasal flaring. Abdomen/GI: Soft, non-tender, with normal bowel sounds. No distension or tympany. No guarding or rebound. No evidence of tenderness throughout. Skin: Warm, dry with normal turgor. Normal color with no rashes, no lesions, and no evidence of cellulitis. Neuro: Awake and alert, GCS 15, oriented to person, place, time, and situation. Cranial nerves II-XII grossly intact. Motor strength 5/5 in all extremities. Sensory grossly intact. Cerebellar exam normal. Normal gait. Psych: Awake, alert, with orientation to person, place and time. Behavior, mood, and affect are within normal limits. 17:50 Back: Reproducible pain in the trapezius muscle footprint particularly of the middle trapezius. No midline tenderness. Neurological exam is normal. , Vital Signs: 17:46 BP 120 / 90; Pulse 110; Resp 20; Temp 98.1; Pulse Ox 97% ; Weight 47.63 kg; Height 5 me1 ft. 1 in. ; Pain 8/10; 17:46 Body Mass Index 19.84 (47.63 kg, 154.94 cm) me1 17:46 Pain Scale: Adult me1 MDM: 17:47 Medical Screening Exam initiated sp3 17:51 Data reviewed: vital signs, nurses notes. ED course: Differential diagnosis includes sp3 muscle strain versus muscle tear. Clinically I ruled out fracture, acute coronary syndrome, other pulmonary pathology, aortic dissection or aneurysm, or any other critical process. Initial heart rate was 110 however is in the low 90s now that she is resting comfortably. Blood pressure normal as well as remainder of her vital signs. We will give ketorolac intramuscularly and discharge patient home on diclofenac and p.o. muscle relaxers. Follow-up with PCP as needed.. Administered Medications: 18:06 Drug: Ketorolac IM 30 mg IM once Route: IM; Site: left deltoid; db 18:16 Follow up: Response: No adverse reaction db Disposition Summary: 12/16/24 17:52 Discharge Ordered Notes: Location: Home sp3 Condition: Stable sp3 Diagnosis - Trapezius strain sp3 Followup: sp3 - With: Private Physician - When: Upon discharge from the Emergency Department - Reason: Continuance of care Discharge Instructions: - Discharge Summary Sheet sp3 - Muscle Strain sp3 Forms: - Medication Reconciliation Form sp3 - Antibiotic Education sp3 - Prescription Opioid Use sp3 - Patient Portal Instructions sp3 - Leadership Thank You Letter sp3 Prescriptions: - Diclofenac Sodium 75 mg Oral Tablet Sustained Release - take 1 tablet ORAL route 2 times per day; 30 tablet; Refills: 0, Product sp3 Selection Permitted - Cyclobenzaprine 5 mg Oral Tablet - take 1 tablet ORAL route 3 times per day As needed; 15 tablet; Refills: 0, sp3 Product Selection Permitted Signatures: Kristan Barrett MD MD sp3 Virgen Mc RN RN db Adelina Snowden, JAYLENE RN me1
[2024-12-16] MEDS ORDERED: KETOROLAC 30 MG/ML INJ ONE (17:57)
[2024-12-16 18:22] VITALS: BP 120/90; TEMP 98.1; O2SAT 97
== END 2024-12-16 18:16 | disposition home or self-care (01) ==
LOC: ER 17:34
DX: S46.811A Strain of other muscles, fascia and tendons at shoulder and upper arm level, right arm, initial encounter (principal)
CPT/HCPCS: 96372; 99284; J1885